=== PATIENT | male | born 1945 | race Caucasian/White ===

== ENCOUNTER 2017-05-23 11:00 | Emergency (ER) | payer OTHER ==
[~2017-05-23] VITALS: Ht 152.4 cm; Wt 54.0 kg
[~2017-05-23 11:00] MED LIST: CALC200T PO; LEVO88TA3 PO; MAGN400T24 PO; OMEP40CA PO; PLQ200 PO; PRED-301 PO; PREG1CAP36 PO; TAMS0.4C38 PO; TRAM-10 PO
[2017-05-23 11:07] VITALS: TEMP 36.3; Ht 152.4 cm; Wt 54.0 kg
[2017-05-23] MEDS ORDERED: PRLSR20 PO (11:29)
[2017-05-23] MEDS ORDERED: CALC650T4 PO (11:29)
[2017-05-23] MEDS ORDERED: MAGN1TAB19 PO (11:29)
[2017-05-23] MEDS ORDERED: PREG75CA PO (11:29)
--- NOTE | 2017-05-23 12:07 | EMERGENCY ROOM VISIT NOTE ---
History Report prepared by Trish: Dany Vera Under the Supervision of: Dr. Sonido Enrique M.D. First contact with patient: 11:57 Chief Complaint: FALL Stated Complaint: FALL,RIB AND SHOULDER PAIN History of Present Illness The patient is a 71 year old male who presents to the Emergency Room with complaints of a fall that occurred last night. Per the patient and his caretakers, at that time he was working on his stereo in his wheelchair. He was leaning forward in his chair and accidentally fell out of it, hitting the arm rest in the process. He is experiencing left shoulder pain and right rib pain. He denies any loss of consciousness, head trauma, weakness, or numbness. He describes his pains as aches and his severity as a 6/10 in severity. Source of History: patient Onset: last night Position: other (global) Symptom Intensity: mild Quality: other (Fall) Timing: resolved Associated Symptoms: No LOC, No weakness, No numbness Note: He is experiencing left shoulder and right rib pain. He denies any head trauma. Review of Systems See HPI for pertinent positives & negatives. A total of 10 systems reviewed and were otherwise negative. 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 (12) Osteoarthritis (13) Pelvis stress fracture (14) Tinea corporis Surgical Problems: (1) History of cholecystectomy Family History Diabetes mellitus FH: heart disease Hypertension Social History Smoking Status: Never Smoker Alcohol Use: occasionally Drug Use: none Marital Status: Housing Status: lives with significant other Occupation Status: retired Current/Historical Medications Scheduled Calcium Lactate (Calcium Lactate), 1,296 MG PO DAILY Docusate Sodium (Colace), 1 CAP PO BID Hydroxychloroquine Sulfate (Hydroxychloroquine Sulfat), 200 MG PO QPM Levothyroxine Sodium (Levothyroxine Sodium), 88 MCG PO DAILY Magnesium Oxide (Mg Supplement (Magnesium Oxide), 400 MG PO DAILY Omeprazole (Prilosec), 40 MG PO BID Prednisone (Prednisone), 10 MG PO BID Pregabalin (Lyrica), 75 MG PO BID Sennosides (Senokot), 8.6 MG PO HS Tamsulosin Hcl (Flomax), 0.4 MG PO DAILY Tramadol (Ultram), 50 MG PO TID Scheduled PRN Oxycodone Ir (Roxicodone Ir), 1-2 TAB PO Q4H PRN for Severe Pain Allergies Coded Allergies: Metoclopramide (Verified Adverse Reaction, Intermediate, RAPID HR, 05/23/17 ) ADM. [id number] REGLAN DOSE DECREASED,THEN INCREASED BY DR FIELD. PT NOW TOLERATING 10 MG ACHS. IF QUESTIONS,CALL [facility]. Physical Exam Vital Signs Date Time Temp Pulse Resp B/P (MAP) Pulse Ox O2 Delivery O2 Flow Rate FiO2 05/23/17 14:28 99 20 124/75 92 05/23/17 13:28 97 05/23/17 13:09 92 22 156/79 89 Room Air 05/23/17 13:00 89 Room Air 05/23/17 13:00 89 Room Air 05/23/17 11:07 36.3 85 18 133/74 94 Room Air Physical Exam GENERAL: Patient is a healthy-appearing well-nourished male HEAD: Normocephalic atraumatic EYES: Ocular movements intact pupils equal and react to light OROPHARYNX mucous membranes are moist no exudates present no erythema or edema present NECK: Supple no nuchal rigidity CHEST: Good equal expansion, tenderness to palpation of the left chest wall LUNGS: Clear and equal to auscultation CARDIAC: Normal S1 and S2 ABDOMEN: Soft nontender no guarding BACK: No CVA tenderness EXTREMITIES: No pain upon palpation normal muscle strength in all groups no clubbing cyanosis or edema NEURO: Patient is following commands and answering questions appropriately. Alert and oriented x3 Cranial Nerves 2-12 grossly intact Medical Decision & Procedures ER Provider Diagnostic Interpretation: Radiology results as stated below per my review and radiologist interpretation: THORACIC SPINE CT CT DOSE: HISTORY: Pt c/o back pain TECHNIQUE: Multiaxial CT images of the thoracic spine were performed and reformatted in the sagittal and coronal plane without the use of contrast. A dose lowering technique was utilized adhering to the principles of ALARA. COMPARISON: Chest CTA 10/28/2014. FINDINGS: There again noted compression deformities involving all of the thoracic and visualized lumbar spine vertebral bodies. This is most pronounced at the T7, T8, T9 and L1 levels which demonstrate severe compression fractures. Given the stability these are considered to be old. No new/acute compression fractures identified. No significant retropulsion identified. No significant central canal narrowing by CT technique. Paraspinal soft tissues are unremarkable. IMPRESSION: 1. No significant change in the multiple old compression deformities seen throughout the thoracic and lumbar spine. 2. No acute compression fractures identified. Electronically signed by: Dale Agarwal M.D. 05/23/2017 1:23 PM Dictated Date/Time: 05/23/2017 1:16 PM (CHEST) THORAX WITHOUT CLINICAL HISTORY: Left-sided chest pain status post trauma COMPARISON STUDY: 10/28/2014 CT DOSE: 189.07 mGy.cm TECHNIQUE: CT of the thorax was performed from the thoracic inlet to the lung bases. Images are reviewed in the axial, sagittal, and coronal planes. IV contrast was not administered for this examination. A dose lowering technique was utilized adhering to the principles of ALARA. FINDINGS: Thyroid: Imaged portions of the thyroid gland are normal in appearance. Thoracic aorta: The thoracic aorta is normal in course and caliber, noting standard 3 vessel arch anatomy. Heart: The heart is normal in size and configuration, without pericardial effusion. Lungs and pleural spaces: There are no significant pleural effusions. There is no pneumothorax. There is stable dependent airspace opacities, likely atelectatic. There is respiratory motion artifact. Mediastinum: There is no mediastinal lymphadenopathy. Jazmine: There is no evidence of pathologic hilar adenopathy given the limitations of a noncontrast study Axilla: There is no evidence of pathologic axillary lymphadenopathy Upper abdomen: Partially visualized upper abdominal viscera is within normal limits. Skeletal structures: There is an old proximal left humeral fracture. There are multiple old rib fractures in various stages of healing. There is an old scapular fracture. There are multiple severe vertebral body compression fractures. These remain similar to the prior study. There is an old sternal fracture. IMPRESSION: 1. No evidence of acute intrathoracic injury given the limitations of a noncontrast study 2. Multiple old bilateral rib fractures, sternal fracture, left scapular fracture, left humeral fracture, and multiple thoracic vertebral body compression fractures 3. No evidence of pneumothorax 4. Bibasilar opacities, similar to the prior study and likely atelectatic Electronically signed by: Sanjay Perez M.D. 05/23/2017 1:22 PM Dictated Date/Time: 05/23/2017 1:17 PM Laboratory Results 05/23/17 12:55 Red Blood Count 4.03, Mean Corpuscular Volume 89.6, Mean Corpuscular Hemoglobin 30.0, Mean Corpuscular Hemoglobin Concent 33.5, Mean Platelet Volume 8.0, Neutrophils (%) (Auto) 80.4, Lymphocytes (%) (Auto) 4.6, Monocytes (%) (Auto) 13.5, Eosinophils (%) (Auto) 0.5, Basophils (%) (Auto) 0.1, Neutrophils # (Auto ) 7.82, Lymphocytes # (Auto) 0.45, Monocytes # (Auto) 1.31, Eosinophils # (Auto ) 0.05, Basophils # (Auto) 0.01 05/23/17 12:55 Test 05/23/17 12:33 05/23/17 12:55 Bedside Glucose 91 mg/dl (70-99) White Blood Count 9.73 K/uL (4.8-10.8) Red Blood Count 4.03 M/uL (4.7-6.1) Hemoglobin 12.1 g/dL (14.0-18.0) Hematocrit 36.1 % (42-52) Mean Corpuscular Volume 89.6 fL (80-100) Mean Corpuscular Hemoglobin 30.0 pg (25-34) Mean Corpuscular Hemoglobin Concent 33.5 g/dl (32-36) Platelet Count 220 K/uL (130-400) Mean Platelet Volume 8.0 fL (7.4-10.4) Neutrophils (%) (Auto) 80.4 % Lymphocytes (%) (Auto) 4.6 % Monocytes (%) (Auto) 13.5 % Eosinophils (%) (Auto) 0.5 % Basophils (%) (Auto) 0.1 % Neutrophils # (Auto) 7.82 K/uL (1.4-6.5) Lymphocytes # (Auto) 0.45 K/uL (1.2-3.4) Monocytes # (Auto) 1.31 K/uL (0.11-0.59) Eosinophils # (Auto) 0.05 K/uL (0-0.5) Basophils # (Auto) 0.01 K/uL (0-0.2) RDW Standard Deviation 45.0 fL (36.4-46.3) RDW Coefficient of Variation 13.7 % (11.5-14.5) Immature Granulocyte % (Auto) 0.9 % Immature Granulocyte # (Auto) 0.09 K/uL (0.00-0.02) Anion Gap 8.0 mmol/L (3-11) Est Creatinine Clear Calc Drug Dose 56.1 ml/min Estimated GFR () 101.2 Estimated GFR (Non- 87.3 BUN/Creatinine Ratio 21.0 (10-20) Calcium Level 9.0 mg/dl (8.5-10.1) Total Bilirubin 0.5 mg/dl (0.2-1) Direct Bilirubin < 0.1 mg/dl (0-0.2) Aspartate Amino Transf (AST/SGOT) 19 U/L (15-37) Alanine Aminotransferase (ALT/SGPT) 23 U/L (12-78) Alkaline Phosphatase 63 U/L (45-117) Total Protein 7.0 gm/dl (6.4-8.2) Albumin 3.6 gm/dl (3.4-5.0) Labs reviewed by ED physician. Medications Administered Medications (Trade) Dose Ordered Sig/Soumya Route Start Time Stop Time Status Last Admin Dose Admin Hydromorphone HCl (Dilaudid Inj) 0.5 mg NOW STAT IV 05/23/17 12:08 05/23/17 12:13 DC 05/23/17 12:53 0.5 MG Ondansetron HCl (Zofran Inj) 4 mg NOW STAT IV 05/23/17 12:08 05/23/17 12:13 DC 05/23/17 12:53 4 MG Lidocaine (Lidoderm Patch 5%) 1 patch NOW STAT TD 05/23/17 13:48 05/23/17 13:49 DC 05/23/17 14:03 1 PATCH ED Course 1157: Past medical records reviewed. The patient was evaluated in room B11. A complete history and physical examination was performed. 1208: Ordered Zofran Inj 4 mg IV, Dilaudid Inj 0.5 mg IV 1348: Ordered Lidocaine 1 patch TD 1405: Upon reexamination the patient is resting. I discussed results and treatment plan with the patient. He verbalizes agreement and understanding. The patient is ready for discharge. Medical Decision Differential diagnosis: Etiologies such as fracture, dislocation, intra-abdominal, pneumothorax, intrathoracic , intracranial, neurologic, as well as other traumatic pathologies were entertained. This is a 71-year-old male who presents emergency department complaining of chest pain after a fall into a bathtub. The patient has had multiple falls in the past has had multiple fractures. He was sent for CT of the chest which does not show any acute fractures pneumothorax or hemothorax. The patient's pain was controlled with Dilaudid here in the emergency department. Based on the complaint and the findings I feel the patient can be safely discharged home. Both patient and caregivers were in agreement with the treatment plan. The patient was given an incentive spirometer as well as pain meds for home. Medication Reconcilliation Current Medication List: was personally reviewed by me Blood Pressure Screening Patient's blood pressure: Elevated blood pressure Blood pressure disposition: Elevated BP felt to be situational Impression Primary Impression: Fall Additional Impression: Rib pain on left side Scribe Attestation The scribe's documentation has been prepared under my direction and personally reviewed by me in its entirety. I confirm that the note above accurately reflects all work, treatment, procedures, and medical decision making performed by me. Departure Information Dispostion Home / Self-Care Prescriptions Docusate Sodium (COLACE) 100 Mg Cap 1 CAP PO BID for 30 Days, #60 CAP Prov: Sonido Enrique MD 05/23/17 Sennosides (SENOKOT) 8.6 Mg Tab 8.6 MG PO HS, #30 TAB Prov: Sonido Enrique MD 05/23/17 Oxycodone Ir (Roxicodone Ir) 5 Mg Tab 1-2 TAB PO Q4H Y for Severe Pain, #14 TAB Prov: Sonido Enrique MD 05/23/17 Referrals Alfreda Angelo M.D. (PCP) Forms HOME CARE DOCUMENTATION FORM, IMPORTANT VISIT INFORMATION, School Instructions, Work Instructions Patient Instructions ED Contusion Vs Minor Fx Rib, ED Fall Dizziness Weakn Balance, My [facility] Additional Instructions Use incentive spirometer every 15 minutes Problem Qualifiers Primary Impression: Fall Encounter type: initial encounter Qualified Codes: W19.XXXA - Unspecified fall, initial encounter
[2017-05-23] MEDS ORDERED: HYDROmorphone INJ 0.5 MG/0.5 ML SYR IV STA (12:08)
[2017-05-23] MEDS ORDERED: ONDANSETRON INJ 2 MG/ML 2 ML VIAL IV STA (12:08)
[2017-05-23 13:00] VITALS: O2SAT 89
[2017-05-23 13:08] LABS: BASO % 0.1 %; BASO ABS # 0.01 K/uL (0-0.2); EOS % 0.5 %; EOS ABS # 0.05 K/uL (0-0.5); HEMATOCRIT 36.1 % (42-52); HEMOGLOBIN 12.1 g/dL (14.0-18.0); IG# 0.09 K/uL (0.00-0.02); LYMPH % 4.6 %; LYMPH ABS # 0.45 K/uL (1.2-3.4); MEAN CELL VOLUME 89.6 fL (80-100); MEAN CORPUSCULAR HGB CONC 33.5 g/dl (32-36); MONO % 13.5 %; MONO ABS # 1.31 K/uL (0.11-0.59); NEUT % 80.4 %; NEUT ABS # 7.82 K/uL (1.4-6.5); PLATELET COUNT 220 K/uL (130-400); RED CELL DISTRIBUTION WIDTH CV 13.7 % (11.5-14.5); WHITE BLOOD COUNT 9.73 K/uL (4.8-10.8)
--- NOTE | 2017-05-23 13:23 | DIAGNOSTIC IMAGING REPORT ---
(CHEST) THORAX WITHOUT CLINICAL HISTORY: Left-sided chest pain status post trauma COMPARISON STUDY: 10/28/2014 CT DOSE: 189.07 mGy.cm TECHNIQUE: CT of the thorax was performed from the thoracic inlet to the lung bases. Images are reviewed in the axial, sagittal, and coronal planes. IV contrast was not administered for this examination. A dose lowering technique was utilized adhering to the principles of ALARA. FINDINGS: Thyroid: Imaged portions of the thyroid gland are normal in appearance. Thoracic aorta: The thoracic aorta is normal in course and caliber, noting standard 3 vessel arch anatomy. Heart: The heart is normal in size and configuration, without pericardial effusion. Lungs and pleural spaces: There are no significant pleural effusions. There is no pneumothorax. There is stable dependent airspace opacities, likely atelectatic. There is respiratory motion artifact. Mediastinum: There is no mediastinal lymphadenopathy. Jazmine: There is no evidence of pathologic hilar adenopathy given the limitations of a noncontrast study Axilla: There is no evidence of pathologic axillary lymphadenopathy Upper abdomen: Partially visualized upper abdominal viscera is within normal limits. Skeletal structures: There is an old proximal left humeral fracture. There are multiple old rib fractures in various stages of healing. There is an old scapular fracture. There are multiple severe vertebral body compression fractures. These remain similar to the prior study. There is an old sternal fracture. IMPRESSION: 1. No evidence of acute intrathoracic injury given the limitations of a noncontrast study 2. Multiple old bilateral rib fractures, sternal fracture, left scapular fracture, left humeral fracture, and multiple thoracic vertebral body compression fractures 3. No evidence of pneumothorax 4. Bibasilar opacities, similar to the prior study and likely atelectatic Electronically signed by: Sanjay Perez M.D. 05/23/2017 1:22 PM Dictated Date/Time: 05/23/2017 1:17 PM
--- NOTE | 2017-05-23 13:24 | DIAGNOSTIC IMAGING REPORT ---
THORACIC SPINE CT CT DOSE: HISTORY: Pt c/o back pain TECHNIQUE: Multiaxial CT images of the thoracic spine were performed and reformatted in the sagittal and coronal plane without the use of contrast. A dose lowering technique was utilized adhering to the principles of ALARA. COMPARISON: Chest CTA 10/28/2014. FINDINGS: There again noted compression deformities involving all of the thoracic and visualized lumbar spine vertebral bodies. This is most pronounced at the T7, T8, T9 and L1 levels which demonstrate severe compression fractures. Given the stability these are considered to be old. No new/acute compression fractures identified. No significant retropulsion identified. No significant central canal narrowing by CT technique. Paraspinal soft tissues are unremarkable. IMPRESSION: 1. No significant change in the multiple old compression deformities seen throughout the thoracic and lumbar spine. 2. No acute compression fractures identified. Electronically signed by: Dale Agarwal M.D. 05/23/2017 1:23 PM Dictated Date/Time: 05/23/2017 1:16 PM
[2017-05-23 13:27] LABS: ALBUMIN 3.6 gm/dl (3.4-5.0); BLOOD UREA NITROGEN 17 mg/dl (7-18); CARBON DIOXIDE 25 mmol/L (21-32); CREATININE 0.83 mg/dl (0.60-1.40); GLUCOSE 98 mg/dl (70-99); POTASSIUM 3.5 mmol/L (3.5-5.1); SODIUM 139 mmol/L (136-145)
[2017-05-23 13:30] LABS: ALKALINE PHOSPHATASE 63 U/L (45-117); ALT/SGPT 23 U/L (12-78); AST/SGOT 19 U/L (15-37)
[2017-05-23] MEDS ORDERED: LIDODERM (LIDOCAINE) PATCH 5% TD STA (13:48)
[2017-05-23] MEDS ORDERED: SENN1TAB77 PO (13:54)
[2017-05-23] MEDS ORDERED: OXYC1TAB3 PO (13:54)
[2017-05-23] MEDS ORDERED: DOCU-94 PO (13:54)
[2017-05-23 14:28] VITALS: BP 124/75; PULSE 99; O2SAT 92
== END 2017-05-23 14:30 | disposition home or self-care (01) ==
LOC: C.EDB 11:03
DX: R07.81 Pleurodynia (principal); W05.0XXA Fall from non-moving wheelchair, initial encounter; W18.2XXA Fall in (into) shower or empty bathtub, initial encounter; M19.90 Unspecified osteoarthritis, unspecified site; E03.9 Hypothyroidism, unspecified; K21.9 Gastro-esophageal reflux disease without esophagitis; R03.0 Elevated blood-pressure reading, without diagnosis of hypertension; Z87.81 Personal history of (healed) traumatic fracture; Z96.649 Presence of unspecified artificial hip joint; Z79.52 Long term (current) use of systemic steroids; Z83.3 Family history of diabetes mellitus; Z82.49 Family history of ischemic heart disease and other diseases of the circulatory system

== ENCOUNTER 2017-06-04 15:51 | Emergency (ER) | payer OTHER ==
[~2017-06-04] VITALS: Ht 152.4 cm; Wt 58.8 kg
[~2017-06-04 15:51] MED LIST changes: -CALC200T PO; +CALC650T4 PO; +DOCU-94 PO; +MAGN1TAB19 PO; -MAGN400T24 PO; -OMEP40CA PO; +OXYC1TAB3 PO; -PREG1CAP36 PO; +PREG75CA PO; +PRLSR20 PO
[2017-06-04 15:59] VITALS: TEMP 36.7; Ht 152.4 cm; Wt 58.8 kg
--- NOTE | 2017-06-04 16:32 | DIAGNOSTIC IMAGING REPORT ---
CHEST 2 VIEWS ROUTINE HISTORY: 71 years-old Male r upper chest shoulder pain acute right upper chest and shoulder pain status post fall COMPARISON: Chest CT 05/23/2017 TECHNIQUE: PA and lateral views of the chest FINDINGS: Cardiac silhouette is moderately enlarged. Mild emphysematous changes with hyperinflation. Linear subsegmental opacity of the left lung base suggest atelectasis or scarring. No pneumothorax, pleural effusion or focal airspace consolidation. Multiple remote appearing bilateral rib fractures. Remote left clavicle fracture. No definite acute rib fracture identified. Bones appear osteoporotic. Remote fracture of the left scapula and left humerus. Cholecystectomy clips noted. Multiple likely remote appearing compression deformities of the spine. Atherosclerosis of the aorta. IMPRESSION: 1. Linear subsegmental atelectasis or scarring of the left lung base without acute process of the chest identified. 2. Cardiomegaly. 3. Multiple remote bilateral rib fractures with remote left scapular, clavicle and left humeral fractures. The above report was generated using voice recognition software. It may contain grammatical, syntax or spelling errors. Electronically signed by: Abdoul Clemens M.D. 06/04/2017 4:31 PM Dictated Date/Time: 06/04/2017 4:29 PM
--- NOTE | 2017-06-04 16:36 | DIAGNOSTIC IMAGING REPORT ---
R SHOULDER MIN 2 VIEWS ROUTINE CLINICAL HISTORY: r shoulder pain pain COMPARISON: None. DISCUSSION: Generalized degenerative change right shoulder. Generalized osteopenia. No well-defined acute bony abnormality. There are multiple old upper right rib fractures similar to prior study of 11/22/2014. There is no evidence for soft tissue swelling. IMPRESSION: Degenerative change. Osteopenia. Multiple old right rib fractures. The above report was generated using voice recognition software. It may contain grammatical, syntax or spelling errors. Electronically signed by: Jaron Rosa M.D. 06/04/2017 4:35 PM Dictated Date/Time: 06/04/2017 4:33 PM
[2017-06-04 18:30] VITALS: BP 155/78; PULSE 93; O2SAT 94
--- NOTE | 2017-06-04 22:31 | EMERGENCY ROOM VISIT NOTE ---
History Report prepared by Trish: Pablo Hallman Under the Supervision of: Travis TangO. First contact with patient: 15:57 Chief Complaint: SHOULDER PAIN Stated Complaint: FALL, R SHOULDER PAIN History of Present Illness The patient is a 71 year old male who presents to the Emergency Room with complaints of constant right shoulder pain beginning today after his fell and he tried to catch her. The patient states that his [place] in the [place], and that he tried to catch her. He notes that as he tried to catch his , he tripped a little and hurt his shoulder, but did not fall. He reports that he also bumped into something last night and is experiencing abdominal pain. He denies being on any blood thinners. He rates his pain a 6/10. Pt denies headache, change in vision, fevers, chest pain, shortness of breath, nausea, vomiting, diarrhea, pain with urination, and melena. Source of History: patient Onset: today Position: shoulder (right) Symptom Intensity: 6/10 Timing: constant Associated Symptoms: + abdominal pain, No fevers, No headache, No chest pain , No SOB, No nausea, No vomiting, No diarrhea, No urinary symptoms Review of Systems See HPI for pertinent positives & negatives. A total of 10 systems reviewed and were otherwise negative. 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 (12) Osteoarthritis (13) Pelvis stress fracture (14) Tinea corporis Surgical Problems: (1) History of cholecystectomy Family History Diabetes mellitus FH: heart disease Hypertension Social History Smoking Status: Never Smoker Alcohol Use: occasionally Drug Use: none Marital Status: Housing Status: lives with significant other Occupation Status: retired Current/Historical Medications Scheduled Calcium Lactate (Calcium Lactate), 1,296 MG PO DAILY Docusate Sodium (Colace), 1 CAP PO BID Hydroxychloroquine Sulfate (Hydroxychloroquine Sulfat), 200 MG PO QPM Levothyroxine Sodium (Levothyroxine Sodium), 88 MCG PO DAILY Magnesium Oxide (Mg Supplement (Magnesium Oxide), 400 MG PO DAILY Omeprazole (Prilosec), 40 MG PO BID Prednisone (Prednisone), 10 MG PO DAILY Pregabalin (Lyrica), 75 MG PO BID Tamsulosin Hcl (Flomax), 0.4 MG PO DAILY Tramadol (Ultram), 50 MG PO TID Scheduled PRN Oxycodone Ir (Roxicodone Ir), 1-2 TAB PO Q4H PRN for Severe Pain Allergies Coded Allergies: Metoclopramide (Verified Adverse Reaction, Intermediate, RAPID HR, 06/04/17 ) ADM. [id number] REGLAN DOSE DECREASED,THEN INCREASED BY DR FIELD. PT NOW TOLERATING 10 MG ACHS. IF QUESTIONS,CALL [facility]. Physical Exam Vital Signs Date Time Temp Pulse Resp B/P (MAP) Pulse Ox O2 Delivery O2 Flow Rate FiO2 06/04/17 18:30 93 18 155/78 94 06/04/17 15:59 36.7 105 20 144/85 92 Room Air Physical Exam GENERAL: alert, well appearing and sitting up in bed, well nourished, no distress, non-toxic, disheveled HEAD: normal cephalic, atraumatic EYE EXAM: normal conjunctiva, PERRL and EOM's grossly intact OROPHARYNX: no exudate, no erythema, lips, buccal mucosa, and tongue normal and mucous membranes are moist NECK: supple, no nuchal rigidity, no adenopathy, non-tender CHEST: Acute reproducible tenderness over right upper chest wall/right shoulder LUNGS: clear to auscultation. Normal chest wall mechanics HEART: no murmurs, S1 normal and S2 normal ABDOMEN: abdomen soft, non-tender, normo-active bowel sounds, no masses, no rebound or guarding. PELVIS: stable to compression anteriorly and posteriorly BACK: Back is symmetrical on inspection and there is no deformity, no midline tenderness, no CVA tenderness. UPPER EXTREMITIES: full active and passive range of motion of all joints without tenderness to palpation LOWER EXTREMITIES: full active and passive range of motion of all joints without tenderness to palpation NEURO EXAM: Normal sensorium, cranial nerves II-XII grossly intact, normal speech, no gross weakness of arms, no gross weakness of legs. Medical Decision & Procedures ER Provider Diagnostic Interpretation: Radiology results as stated below per my review and the radiologist's interpretation: R SHOULDER MIN 2 VIEWS ROUTINE CLINICAL HISTORY: r shoulder pain pain COMPARISON: None. DISCUSSION: Generalized degenerative change right shoulder. Generalized osteopenia. No well-defined acute bony abnormality. There are multiple old upper right rib fractures similar to prior study of 11/22/2014. There is no evidence for soft tissue swelling. IMPRESSION: Degenerative change. Osteopenia. Multiple old right rib fractures. The above report was generated using voice recognition software. It may contain grammatical, syntax or spelling errors. Electronically signed by: Jaron Rosa M.D. 06/04/2017 4:35 PM CHEST 2 VIEWS ROUTINE HISTORY: 71 years-old Male r upper chest shoulder pain acute right upper chest and shoulder pain status post fall COMPARISON: Chest CT 05/23/2017 TECHNIQUE: PA and lateral views of the chest FINDINGS: Cardiac silhouette is moderately enlarged. Mild emphysematous changes with hyperinflation. Linear subsegmental opacity of the left lung base suggest atelectasis or scarring. No pneumothorax, pleural effusion or focal airspace consolidation. Multiple remote appearing bilateral rib fractures. Remote left clavicle fracture. No definite acute rib fracture identified. Bones appear osteoporotic. Remote fracture of the left scapula and left humerus. Cholecystectomy clips noted. Multiple likely remote appearing compression deformities of the spine. Atherosclerosis of the aorta. IMPRESSION: 1. Linear subsegmental atelectasis or scarring of the left lung base without acute process of the chest identified. 2. Cardiomegaly. 3. Multiple remote bilateral rib fractures with remote left scapular, clavicle and left humeral fractures. The above report was generated using voice recognition software. It may contain grammatical, syntax or spelling errors. Electronically signed by: Abdoul Clemens M.D. 06/04/2017 4:31 PM ECG Indication: back/shoulder pain Rate (beats per minute): 90 Rhythm: sinus rhythm Findings: no ectopy, other (Poor baseline) ED Course ED COURSE: Vital signs were reviewed and showed that the patient was tachycardic. The patients medical record was reviewed The above diagnostic studies were performed and reviewed. ED treatments and interventions as stated above. 1555: The patient was evaluated in room A11. A complete history and physical examination was performed. 1802: Upon reevaluation, the patient is feeling fine .I discussed my findings with the him and he understands and agrees with the treatment plan. Based on the patients age, coexisting illnesses, exam and lab findings the decision to treat as an outpatient was made. The patient remained stable while under my care. The patient appeared well at the time of discharge. 1849: Upon reevaluation, the patient is feeling better. I discussed the findings and the treatment plan with the patient. He verbalizes agreement and understanding. He was discharged home. Medical Decision Differential diagnoses include major intracranial, cervical, spinal, thoracic, abdominal, pelvic and neurologic injury. Fracture, contusion, sprain, strain, laceration, abrasions included as well. Patient is a 71-year-old male who presents the ER for right shoulder pain and chest wall pain. This occurred when he tried to prevent his way from falling. He notes he has multiple old rib fractures. X-rays were obtained and show no acute fractures. They do confirm the old rib fractures. EKG was unremarkable. He denies any chest pain or shortness breath prior to this incident. Pain is clearly reproducible. Patient was updated bedside. He was discharged follow- up with PCP as an outpatient. He denied any other complaints including headache and neck pain. Discussed with Pt concerning signs and symptoms to watch out for. Pt was instructed to follow up with their PCP and discussed with the patient their option to return to the ED at anytime for persistent or worsening symptoms. The appropriate anticipatory guidance and out-patient management, including indications for return to the emergency department, were explained at length to the patient and understood. Blood Pressure Screening Patient's blood pressure: Elevated blood pressure Blood pressure disposition: Referred to PCP Impression Primary Impression: Right shoulder pain Additional Impression: Rib fracture Scribe Attestation The scribe's documentation has been prepared under my direction and personally reviewed by me in its entirety. I confirm that the note above accurately reflects all work, treatment, procedures, and medical decision making performed by me. Departure Information Dispostion Home / Self-Care Referrals Suleiman Rhoades D.O. (PCP) Forms HOME CARE DOCUMENTATION FORM, IMPORTANT VISIT INFORMATION Patient Instructions My [facility] Additional Instructions Please follow up with your primary care doctor with in the next 24 hours. Any worsening of your symptoms, please return to the ED immediately. This includes any fevers greater than 100.4, worsening pain, chest pain, shortness breath, persistent nausea, vomiting, unable to eat or drink, or any other concerning signs or symptoms from your standpoint. Please take Tylenol or Motrin as needed for pain. Problem Qualifiers Primary Impression: Right shoulder pain Chronicity: acute Qualified Codes: M25.511 - Pain in right shoulder Additional Impression: Rib fracture Encounter type: subsequent encounter Rib fracture type: multiple ribs Fracture type: closed Fracture healing: with routine healing
== END 2017-06-04 18:30 | disposition home or self-care (01) ==
LOC: EDBD 15:51 → C.EDA 15:54
DX: M25.511 Pain in right shoulder (principal); Z87.81 Personal history of (healed) traumatic fracture; R00.0 Tachycardia, unspecified; E03.9 Hypothyroidism, unspecified; F32.9 Major depressive disorder, single episode, unspecified; K21.9 Gastro-esophageal reflux disease without esophagitis; K31.84 Gastroparesis; F71 Moderate intellectual disabilities; G24.4 Idiopathic orofacial dystonia; M19.90 Unspecified osteoarthritis, unspecified site; Z96.649 Presence of unspecified artificial hip joint; Z83.3 Family history of diabetes mellitus; Z82.49 Family history of ischemic heart disease and other diseases of the circulatory system

== ENCOUNTER 2017-09-06 15:39 | Emergency (ER) | payer OTHER ==
[~2017-09-06] VITALS: Ht 154.9 cm; Wt 67.7 kg
[~2017-09-06 15:39] MED LIST changes: -DOCU-94 PO
[2017-09-06 15:46] VITALS: TEMP 36.9; Ht 154.9 cm; Wt 67.7 kg
--- NOTE | 2017-09-06 16:05 | EMERGENCY ROOM VISIT NOTE ---
History Report prepared by Trish: Kyree Morrison Under the Supervision of: Dr. Juliette Herrera D.O. First contact with patient: 15:49 Chief Complaint: BACK PAIN Stated Complaint: BACK PAIN History of Present Illness The patient is a 71 year old male who presents to the Emergency Room via EMS with complaints of persistent lower back pain after a fall that occurred last night. He states that he was bending forward in his wheelchair, and ended up falling over onto his back side on the floor. The patient notes that he did not hit his head on the fall. He says that he was able to get up and get back into the chair after the fall. Per the nursing staff, case management is involved to deal with the patient and his , who live in a house by themselves. They do have aides who come to the house. The patient states that he has a history of back pain, but the pain is much worse since the fall. He adds that he has some right knee pain, but has not history of knee problems. He denies any urinary symptoms, bowel movement problems, or new numbness or tingling since the fall. Source of History: patient, nursing staff Onset: Last night Position: back (lower) Symptom Intensity: did not hit head on fall Quality: other (pain - after a fall) Timing: other (persistent) Associated Symptoms: No urinary symptoms (or bowel movement problems), No numbness (no new) Note: Associated symptoms: Right knee pain. Review of Systems See HPI for pertinent positives & negatives. A total of 10 systems reviewed and were otherwise negative. 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 (12) Osteoarthritis (13) Pelvis stress fracture (14) Tinea corporis Surgical Problems: (1) History of cholecystectomy Family History Diabetes mellitus FH: heart disease Hypertension Social History Smoking Status: Never Smoker Alcohol Use: occasionally Drug Use: none Marital Status: Housing Status: lives with significant other Occupation Status: retired Current/Historical Medications Scheduled Calcium Lactate (Calcium Lactate), 1,296 MG PO DAILY Hydroxychloroquine Sulfate (Hydroxychloroquine Sulfat), 200 MG PO QPM Levothyroxine Sodium (Levothyroxine Sodium), 88 MCG PO DAILY Magnesium Oxide (Mg Supplement (Magnesium Oxide), 400 MG PO DAILY Omeprazole (Prilosec), 40 MG PO BID Pregabalin (Lyrica), 75 MG PO BID Tamsulosin Hcl (Flomax), 0.4 MG PO DAILY Tramadol (Ultram), 50 MG PO TID Scheduled PRN Albuterol Hfa (Ventolin Hfa), 2 PUFFS INH Q6H PRN for Wheezing Allergies Coded Allergies: Metoclopramide (Verified Adverse Reaction, Intermediate, RAPID HR, 09/06/17 ) ADM. [id number]- REGLAN DOSE DECREASED,THEN INCREASED BY DR FIELD. PT NOW TOLERATING 10 MG ACHS. IF QUESTIONS,CALL [facility]. Physical Exam Vital Signs Date Time Temp Pulse Resp B/P (MAP) Pulse Ox O2 Delivery O2 Flow Rate FiO2 09/06/17 21:58 71 20 128/68 99 09/06/17 20:30 69 18 124/63 92 Room Air 09/06/17 18:13 64 16 109/57 90 09/06/17 15:46 36.9 76 18 137/84 91 Room Air Physical Exam GENERAL: alert, well appearing, well nourished, no distress, non-toxic EYE EXAM: normal conjunctiva, PERRL and EOM's grossly intact OROPHARYNX: no exudate, no erythema, lips, buccal mucosa, and tongue normal and mucous membranes are moist NECK: supple, no nuchal rigidity, no adenopathy, non-tender LUNGS: Clear to auscultation. Normal chest wall mechanics HEART: no murmurs, S1 normal and S2 normal ABDOMEN: abdomen soft, non-tender, normo-active bowel sounds, no masses, no rebound or guarding. BACK: Back is symmetrical on inspection and there is no deformity. Pain on palpation lower lumbar spine. No stepoff, no CVA tenderness, no other neck or back pain. SKIN: no rashes and no bruising UPPER EXTREMITIES: upper extremities are grossly normal. LOWER EXTREMITIES: What appears to be chronic swelling and joint effusions to the bilateral knees. Slightly decreased range of motion of the right knee secondary to pain but otherwise normal pulses, no edema. NEURO EXAM: Normal sensorium, cranial nerves II-XII grossly intact, normal speech, no gross weakness of arms, no gross weakness of legs. Medical Decision & Procedures ER Provider Diagnostic Interpretation: Radiology results have been interpreted by the radiologist and reviewed by me. PELVIS 1 OR 2 VIEW ROUTINE CLINICAL HISTORY: trauma pain COMPARISON: None. DISCUSSION: Findings consistent with a prior left hip pain procedure. Old fracture left pubic ring. No well-defined acute bony abnormality. Findings consistent with an old fracture of the distal left femur. There is an intramedullary jesus in position. There is no evidence for soft tissue swelling. IMPRESSION: Findings consistent with old trauma and postoperative change. No acute bony abnormality. The above report was generated using voice recognition software. It may contain grammatical, syntax or spelling error. Electronically signed by: Jaron Rosa M.D. 09/06/2017 5:22 PM Dictated Date/Time: 09/06/2017 5:[address] WITHOUT CONTRAST CLINICAL HISTORY: Low back pain following fall one week ago. COMPARISON STUDY: Lumbar spine CT October 15, 2014 and lumbar spine radiographs December 26, 2014. TECHNIQUE: Axial images of the lumbar spine were obtained without IV contrast. Sagittal and coronal reconstructions were viewed. FINDINGS: There are old compression fractures of T12-L5. These fractures were shown on exam of December 26, 2014. Loss of height of the L4 vertebral body has increased since CT of October 15, 2014. There is minimal retropulsion at several levels. No acute lumbar spine fracture is identified. Sacroiliac joints are intact. Sclerosis of S1 is unchanged and may reflect an old, healed fracture. Paravertebral soft tissues are unremarkable. Old bilateral rib fractures are noted. Central canal and neural foramen are suboptimally assessed by CT. Sigmoid diverticulosis is noted without evidence for acute diverticulitis within visualized portions. IMPRESSION: 1. Old compression fractures of T12-L5. No acute lumbar spine fracture. Interval loss of height of the L4 vertebral body height since CT of October 15, 2014. 2. Moderate multilevel degenerative disc disease and facet arthrosis. Suboptimal evaluation of central canal and neural foramen given CT technique. Electronically signed by: Dominguez Wells M.D. 09/06/2017 5:38 PM Dictated Date/Time: 09/06/2017 5:29 PM R KNEE 1 OR 2 VIEWS ROUTINE CLINICAL HISTORY: trauma, pain COMPARISON: 04/22/2015 DISCUSSION: Moderate degenerative change. Small chronic joint effusion. Scattered benign calcifications of the pretibial region. Mild chondrocalcinosis. There is no evidence for soft tissue swelling. IMPRESSION: Moderate degenerative change. No acute process. The above report was generated using voice recognition software. It may contain grammatical, syntax or spelling errors. Electronically signed by: Jaron Rosa M.D. 09/06/2017 5:21 PM Dictated Date/Time: 09/06/2017 5:20 PM Laboratory Results Test 09/06/17 20:17 Urine Color DK YELLOW Urine Appearance CLEAR (CLEAR) Urine pH 6.0 (4.5-7.5) Urine Specific [place] 1.029 (1.000-1.030) Urine Protein NEG (NEG) Urine Glucose (UA) NEG (NEG) Urine Ketones NEG (NEG) Urine Occult Blood NEG (NEG) Urine Nitrite NEG (NEG) Urine Bilirubin NEG (NEG) Urine Urobilinogen NEG (NEG) Urine Leukocyte Esterase NEG (NEG) Laboratory results per my review. Medications Administered Medications (Trade) Dose Ordered Sig/Soumya Route Start Time Stop Time Status Last Admin Dose Admin Acetaminophen (Tylenol Tab) 650 mg NOW STAT PO 09/06/17 16:28 09/06/17 16:29 DC 09/06/17 16:43 650 MG ED Course 1552: The patient was evaluated in room C11B. A complete history and physical exam was performed. 1628: Tylenol Tab 650 mg PO. 8: I reevaluated and updated the patient. The caregiver is in there now. 2049: Upon reevaluation, the patient is feeling better. I discussed the findings and the treatment plan with the patient and the caregivers. They verbalize agreement and understanding. The patient and the caregivers feel that they are comfortable going home. The patient was discharged home. Medical Decision Differential diagnoses includes but is not limited to lumbar radiculopathy, muscle strain, facture, cauda equina, mass, and disc herniation. Patient well-appearing her despite complaints. Patient a poor historian and has chronic daily caregivers assist he and his at home. I have a low suspicion for additional occult traumatic injury. Patient with multiple chronic comorbidities. I do not suspect occult pathology. No symptoms or exam to suggest cauda equina, acute discitis, acute nerve impingement, epidural abscess or hematoma. Patient in his usual state of health and acting appropriately according to caregivers. Caregivers were comfortable assisting the patient home. Discussed with patient and caregiver symptoms to watch and return for, close follow-up with family doctor to recheck as a precaution, they verbalized understanding and were agreeable with plan. Medication Reconcilliation Current Medication List: was personally reviewed by me Blood Pressure Screening Patient's blood pressure: Elevated blood pressure Blood pressure disposition: Elevated BP felt to be situational Impression Primary Impression: Back pain Additional Impressions: Fall Knee pain Scribe Attestation The scribe's documentation has been prepared under my direction and personally reviewed by me in its entirety. I confirm that the note above accurately reflects all work, treatment, procedures, and medical decision making performed by me. Departure Information Dispostion Home / Self-Care Referrals Suleiman Rhoades D.O. (PCP) Patient Instructions My [facility] Additional Instructions Please continue your regular medications as prescribed. You may use Tylenol as needed for your knee pain and back pain. You may also use the pain patch which is [id number] and can be purchased at your drugstore or in the pharmacy section of [employer] If you have any worsening pain in your back, hips , knees, develop numbness or tingling, increased swelling in her joints, have difficulty with bowel or bladder function, develop fevers, you have any other new concerns, please return the emergency room. Problem Qualifiers Primary Impression: Back pain Back pain location: low back pain Chronicity: acute Back pain laterality: bilateral Sciatica presence: without sciatica Qualified Codes: M54.5 - Low back pain Additional Impressions: Fall Encounter type: initial encounter Qualified Codes: W19.XXXA - Unspecified fall, initial encounter Knee pain Chronicity: chronic Laterality: bilateral Qualified Codes: M25.561 - Pain in right knee; M25.562 - Pain in left knee; G89.29 - Other chronic pain
[2017-09-06] MEDS ORDERED: ACETAMINOPHEN 325 MG TAB PO STA (16:28)
[2017-09-06] MEDS ORDERED: VNTHFA/IN INH (16:54)
--- NOTE | 2017-09-06 17:23 | DIAGNOSTIC IMAGING REPORT ---
R KNEE 1 OR 2 VIEWS ROUTINE CLINICAL HISTORY: trauma, pain COMPARISON: 04/22/2015 DISCUSSION: Moderate degenerative change. Small chronic joint effusion. Scattered benign calcifications of the pretibial region. Mild chondrocalcinosis. There is no evidence for soft tissue swelling. IMPRESSION: Moderate degenerative change. No acute process. The above report was generated using voice recognition software. It may contain grammatical, syntax or spelling errors. Electronically signed by: Jaron Rosa M.D. 09/06/2017 5:21 PM Dictated Date/Time: 09/06/2017 5:20 PM
--- NOTE | 2017-09-06 17:24 | DIAGNOSTIC IMAGING REPORT ---
PELVIS 1 OR 2 VIEW ROUTINE CLINICAL HISTORY: trauma pain COMPARISON: None. DISCUSSION: Findings consistent with a prior left hip pain procedure. Old fracture left pubic ring. No well-defined acute bony abnormality. Findings consistent with an old fracture of the distal left femur. There is an intramedullary jesus in position. There is no evidence for soft tissue swelling. IMPRESSION: Findings consistent with old trauma and postoperative change. No acute bony abnormality. The above report was generated using voice recognition software. It may contain grammatical, syntax or spelling errors. Electronically signed by: Jaron Rosa M.D. 09/06/2017 5:22 PM Dictated Date/Time: 09/06/2017 5:21 PM
--- NOTE | 2017-09-06 17:39 | DIAGNOSTIC IMAGING REPORT ---
LUMBAR SPINE CT WITHOUT CONTRAST CLINICAL HISTORY: Low back pain following fall one week ago. COMPARISON STUDY: Lumbar spine CT October 15, 2014 and lumbar spine radiographs December 26, 2014. TECHNIQUE: Axial images of the lumbar spine were obtained without IV contrast. Sagittal and coronal reconstructions were viewed. FINDINGS: There are old compression fractures of T12-L5. These fractures were shown on exam of December 26, 2014. Loss of height of the L4 vertebral body has increased since CT of October 15, 2014. There is minimal retropulsion at several levels. No acute lumbar spine fracture is identified. Sacroiliac joints are intact. Sclerosis of S1 is unchanged and may reflect an old, healed fracture. Paravertebral soft tissues are unremarkable. Old bilateral rib fractures are noted. Central canal and neural foramen are suboptimally assessed by CT. Sigmoid diverticulosis is noted without evidence for acute diverticulitis within visualized portions. IMPRESSION: 1. Old compression fractures of T12-L5. No acute lumbar spine fracture. Interval loss of height of the L4 vertebral body height since CT of October 15, 2014. 2. Moderate multilevel degenerative disc disease and facet arthrosis. Suboptimal evaluation of central canal and neural foramen given CT technique. Electronically signed by: Dominguez Wells M.D. 09/06/2017 5:38 PM Dictated Date/Time: 09/06/2017 5:29 PM
[2017-09-06 21:58] VITALS: BP 128/68; PULSE 71; O2SAT 99
== END 2017-09-06 21:59 | disposition home or self-care (01) ==
LOC: EDBD 15:39 → C.EDC 15:39
DX: M54.5 Low back pain (principal); M25.561 Pain in right knee; M25.562 Pain in left knee; W05.0XXA Fall from non-moving wheelchair, initial encounter; R03.0 Elevated blood-pressure reading, without diagnosis of hypertension; E03.9 Hypothyroidism, unspecified; M19.90 Unspecified osteoarthritis, unspecified site; K21.9 Gastro-esophageal reflux disease without esophagitis; Z96.649 Presence of unspecified artificial hip joint; Z79.899 Other long term (current) drug therapy

== ENCOUNTER 2017-09-29 11:16 | Inpatient (IN) | payer OTHER ==
[~2017-09-29] VITALS: Ht 152.4 cm; Wt 52.7 kg
[~2017-09-29 11:16] MED LIST changes: -OXYC1TAB3 PO; -PRED-301 PO; +VNTHFA/IN INH
[2017-09-29] MEDS ORDERED: SODIUM CHLORIDE 0.9% 1000ML 1,000 ML IV STA (11:57)
--- NOTE | 2017-09-29 12:06 | EMERGENCY ROOM VISIT NOTE ---
History Report prepared by Trish: Efrain Bridges Under the Supervision of: Dr. Eris Bedoya M.D. First contact with patient: 11:54 Chief Complaint: RECTAL BLEEDING Stated Complaint: BLEEDING FROM RECTUM,STOMACH ACHE,NOT EATING Nursing Triage Summary: patien to ed via triage, c/o bilateral lower abdominal pain which radiates into the back and rectal bleeding since this morning History of Present Illness The patient is a 71 year old male who presents to the Emergency Room with complaints of intermittent bleeding from his rectum beginning last evening. The patient states both him and his partner use the same toilet. He reports he noticed blood in the toilet, and he was not sure if it was his partner or him. The patient's healthcare market consultant noted he left the patient at 1600 yesterday, and the bleeding began after he left. He states the patient did not have a way to get to the ED unless he called an ambulance or waited for the caregiver to return today. The caregiver reports the patient occasionally coughs phlegm up and spits it into a paper towel. He notes the patient is not able to eat anything recently because of abdominal pain. The caregiver states the patient had all of his pills today with mild liquid, and that is all he has had for food or drink. He reports the patient has a history of a broken hip. The patient denies taking blood thinners or aspirin, fevers, chills, vomiting, nausea, diarrhea, and a history of smoking or alcohol use. Source of History: patient, caregiver Onset: last evening Quality: other (rectal bleeding) Timing: intermittent Associated Symptoms: + cough, + abdominal pain, No fevers, No chills, No nausea, No vomiting, No diarrhea Review of Systems See HPI for pertinent positives and negatives. A total of ten systems were reviewed and were otherwise negative. 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 (12) Osteoarthritis (13) Pelvis stress fracture (14) Rectal bleeding (15) Tinea corporis Surgical Problems: (1) History of cholecystectomy Family History Diabetes mellitus FH: heart disease Hypertension Social History Smoking Status: Never Smoker Alcohol Use: occasionally Drug Use: none Marital Status: Housing Status: lives with significant other Occupation Status: retired Current/Historical Medications Scheduled Calcium Lactate (Calcium Lactate), 1,296 MG PO DAILY Hydroxychloroquine Sulfate (Hydroxychloroquine Sulfat), 200 MG PO QPM Levothyroxine Sodium (Levothyroxine Sodium), 88 MCG PO DAILY Magnesium Oxide (Mg Supplement (Magnesium Oxide), 400 MG PO DAILY Omeprazole (Prilosec), 40 MG PO BID Pregabalin (Lyrica), 75 MG PO BID Tamsulosin Hcl (Flomax), 0.4 MG PO DAILY Tramadol (Ultram), 50 MG PO TID Scheduled PRN Albuterol Hfa (Ventolin Hfa), 2 PUFFS INH Q6H PRN for Wheezing Allergies Coded Allergies: Metoclopramide (Verified Adverse Reaction, Intermediate, RAPID HR, 09/29/17 ) ADM. [id number]- REGLAN DOSE DECREASED,THEN INCREASED BY DR FIELD. PT NOW TOLERATING 10 MG ACHS. IF QUESTIONS,CALL [facility]. Physical Exam Vital Signs Date Time Temp Pulse Resp B/P (MAP) Pulse Ox O2 Delivery O2 Flow Rate FiO2 09/29/17 17:06 100 20 146/91 96 09/29/17 16:07 100 09/29/17 15:30 89 21 127/73 98 Room Air 09/29/17 13:30 98 20 96 Room Air 09/29/17 12:06 105 09/29/17 11:54 96 Room Air 09/29/17 11:28 36.6 114 20 125/74 96 Room Air Physical Exam GENERAL: Awake, alert, fatigued and cachectic-appearing, in no distress HENT: Normocephalic, atraumatic. Oropharynx unremarkable except for dry and cracked mucous membranes. EYES: Normal conjunctiva. Sclera non-icteric. NECK: Supple. No nuchal rigidity. FROM. No JVD. RESPIRATORY: Scattered wheezes and rhonchi. CARDIAC: Sinus tachycardia rate, normal rhythm. Extremities warm and well perfused. Pulses equal. ABDOMEN: Soft, non-distended. No tenderness to palpation. No rebound or guarding. No masses. RECTAL: Red blood. Guaiac positive. Single small, non-thrombosed, non-bloody external hemorrhoid. MUSCULOSKELETAL: Chest examination reveals no tenderness. The back is symmetrical on inspection without obvious abnormality. There is no CVA tenderness to palpation. No joint edema. LOWER EXTREMITIES: Calves are equal size bilaterally and non-tender. No edema. No discoloration. NEURO: Normal sensorium. No sensory or motor deficits noted. SKIN: No rash or jaundice noted. Medical Decision & Procedures ER Provider Diagnostic Interpretation: Radiology results as stated below per my review and radiologist interpretation: CHEST ONE VIEW PORTABLE HISTORY: EVALUATE GI BLEED COMPARISON: Chest 06/04/2017. FINDINGS: Old post traumatic changes seen within the proximal left humerus, left clavicle, and bilateral ribs. This remains unchanged. Cholecystectomy. There are low lung volumes. Mild interstitial thickening most pronounced at the left lung base, unchanged. The heart remains mildly enlarged. No evidence for pulmonary edema. Stable left basilar pleural thickening. A few left basilar linear densities favor subsegmental atelectasis. This is also unchanged. No new focal lung consolidations. IMPRESSION: No significant change compared to the prior study. No acute process. Chronic findings as described above Electronically signed by: Dale Agarwal M.D. 09/29/2017 12:29 PM Dictated Date/Time: 09/29/2017 12:28 PM ABDOMEN AND PELVIS CT WITH IV CONTRAST CT DOSE: 287.30 mGy.cm HISTORY: hematochezia TECHNIQUE: Multiaxial CT images of the abdomen and pelvis were performed following the use of intravenous contrast. A dose lowering technique was utilized adhering to the principles of ALARA. COMPARISON STUDY: Abdomen and pelvis CT 12/26/2014. FINDINGS: Multiple old, healed fractures seen within the ribs, left scapula, spine, and pelvis. Internal fixation of an old left hip fracture is again noted. These are similar to the prior studies and are therefore likely old. Interstitial thickening at the lung bases. This is likely chronic. Calcified granuloma within the right lung base. Patchy densities seen within the base of the left lower lobe. This may represent atelectasis or a pneumonia. No pneumoperitoneum. No pneumatosis. Trace pelvic free fluid. The bladder is unremarkable. Cholecystectomy. No hepatic or splenic masses. The adrenal glands, pancreas, and right kidney are within normal limits. A few subcentimeter hypodense lesions within the left kidney. These are too small to characterize but statistically represent cysts. No hydronephrosis. No retroperitoneal lymphadenopathy. Colonic diverticulosis. A long segment of large bowel wall thickening involving the majority of the transverse colon. This is consistent with a nonspecific colitis. Tiny fat-containing umbilical hernia. IMPRESSION: 1. Nonspecific transverse colitis. This favors an infectious or inflammatory process. 2. Multiple old, healed fractures are again noted. 3. Colonic diverticulosis. 4. Patchy densities at the base of the left lower lobe. This may represent atelectasis or pneumonia. Electronically signed by: Dale Agarwal M.D. 09/29/2017 2:18 PM Dictated Date/Time: 09/29/2017 2:06 PM Laboratory Results 09/29/17 12:54 Red Blood Count 3.97, Mean Corpuscular Volume 84.4, Mean Corpuscular Hemoglobin 27.2, Mean Corpuscular Hemoglobin Concent 32.2, Mean Platelet Volume 7.9, Neutrophils (%) (Auto) 81.8, Lymphocytes (%) (Auto) 4.8, Monocytes (%) (Auto) 12.5, Eosinophils (%) (Auto) 0.5, Basophils (%) (Auto) 0.1, Neutrophils # (Auto ) 9.02, Lymphocytes # (Auto) 0.53, Monocytes # (Auto) 1.38, Eosinophils # (Auto ) 0.05, Basophils # (Auto) 0.01 09/29/17 17:10 09/29/17 12:54 Test 09/29/17 12:54 White Blood Count 11.02 K/uL (4.8-10.8) Red Blood Count 3.97 M/uL (4.7-6.1) Hemoglobin 10.8 g/dL (14.0-18.0) Hematocrit 33.5 % (42-52) Mean Corpuscular Volume 84.4 fL (80-100) Mean Corpuscular Hemoglobin 27.2 pg (25-34) Mean Corpuscular Hemoglobin Concent 32.2 g/dl (32-36) Platelet Count 238 K/uL (130-400) Mean Platelet Volume 7.9 fL (7.4-10.4) Neutrophils (%) (Auto) 81.8 % Lymphocytes (%) (Auto) 4.8 % Monocytes (%) (Auto) 12.5 % Eosinophils (%) (Auto) 0.5 % Basophils (%) (Auto) 0.1 % Neutrophils # (Auto) 9.02 K/uL (1.4-6.5) Lymphocytes # (Auto) 0.53 K/uL (1.2-3.4) Monocytes # (Auto) 1.38 K/uL (0.11-0.59) Eosinophils # (Auto) 0.05 K/uL (0-0.5) Basophils # (Auto) 0.01 K/uL (0-0.2) RDW Standard Deviation 47.5 fL (36.4-46.3) RDW Coefficient of Variation 15.3 % (11.5-14.5) Immature Granulocyte % (Auto) 0.3 % Immature Granulocyte # (Auto) 0.03 K/uL (0.00-0.02) Prothrombin Time 11.4 SECONDS (9.0-12.0) Prothromb Time International Ratio 1.1 (0.9-1.1) Activated Partial Thromboplast Time 29.0 SECONDS (21.0-31.0) Partial Thromboplastin Ratio 1.1 Anion Gap 5.0 mmol/L (3-11) Est Creatinine Clear Calc Drug Dose 48.0 ml/min Estimated GFR () 89.4 Estimated GFR (Non- 77.1 BUN/Creatinine Ratio 16.4 (10-20) Lactic Acid Level 1.3 mmol/L (0.4-2.0) Calcium Level 8.6 mg/dl (8.5-10.1) Total Bilirubin 0.5 mg/dl (0.2-1) Direct Bilirubin 0.1 mg/dl (0-0.2) Aspartate Amino Transf (AST/SGOT) 15 U/L (15-37) Alanine Aminotransferase (ALT/SGPT) 13 U/L (12-78) Alkaline Phosphatase 100 U/L (45-117) Troponin I < 0.015 ng/ml (0-0.045) Pro-B-Type Natriuretic Peptide 175 pg/ml (0-900) Total Protein 7.0 gm/dl (6.4-8.2) Albumin 3.0 gm/dl (3.4-5.0) Lipase 72 U/L (73-393) Laboratory results reviewed by me Medications Administered Medications (Trade) Dose Ordered Sig/Soumya Route Start Time Stop Time Status Last Admin Dose Admin Sodium Chloride 1,000 ml @ 999 mls/hr Q1H1M STAT IV 09/29/17 11:57 09/29/17 12:57 DC 09/29/17 12:47 999 MLS/HR Methylprednisolone Sodium Succinate (Solu-Medrol IV) 125 mg NOW STAT IV 09/29/17 14:31 09/29/17 14:34 DC 09/29/17 15:25 125 MG Albuterol/ Ipratropium (Duoneb) 3 ml NOW STAT INH 09/29/17 14:31 09/29/17 14:34 DC 09/29/17 15:26 3 ML Levofloxacin (Levaquin / D5W) 750 mg NOW STAT IV 09/29/17 14:31 09/29/17 14:34 DC 09/29/17 15:25 750 MG Metronidazole (Flagyl / Nss) 500 mg NOW STAT IV 09/29/17 14:31 09/29/17 14:34 DC 09/29/17 15:25 500 MG Pantoprazole Sodium 40 mg/ Syringe 10 ml @ 5 mls/min NOW ONCE IV 09/29/17 15:15 09/29/17 15:16 DC 09/29/17 15:26 5 MLS/MIN ECG Per My Interpretation Indication: other (GI bleeding) Rate (beats per minute): 94 Rhythm: normal sinus Findings: no acute ischemic change, no ectopy, other (LVH) ED Course 1156: The patient was evaluated in room C09. A complete history and physical exam was performed. 1201: I discussed the risk and benefits of a blood transfusion if needed. The patient consent for a blood transfusion. 1434: Upon reexamination, the patient was requesting to go home. I told him he risks if he does. He said he does not want that. I discussed the test results and treatment plan with him. The patient will be evaluated for further management. 1511: I discussed the patient's case with Dr. Rouse, [place] [facility]. The patient will be evaluated for further management and care. 1544: I reevaluated the patient and performed a rectal exam. Refer to the PE for findings. Medical Decision I reviewed the patient's past medical history, medications, and the nursing notes as described above. Differential diagnosis: Etiologies such as diverticulosis, AVM, coagulopathy, colitis, inflammatory bowel disease, malignancy, Evi-Chilel tear, esophagitis, peptic ulcer disease , variceal bleed, gastritis, epistaxis, fissure, hemorrhoids, as well as others were entertained. The patient is a 71-year-old gentleman who presents emergency department with red blood per rectum that began last night per hpi. Rather the patient is fatigued appearing in no acute distress, afebrile with heart rate in the low 100s and vital signs otherwise stable. Lungs with diffuse rhonchi and wheezes. Rectal exam demonstrates red blood that is guaiac positive. EKG unremarkable. WBC 11. Hemoglobin is 10.8 down from 12.1 in May. Chemistry unremarkable including lactate within normal limits. Chest x-ray unchanged. However, CT abdomen and pelvis demonstrates diverticulosis as well colitis with additional basilar lung findings consistent with pneumonia. Given the patient's exam with significant rhonchi and wheezes will treat for pneumonia/bronchitis with steroids, DuoNeb, Levaquin which with additional Flagyl will also provide coverage for colitis. Hematochezia suspicious for diverticular bleed. Plan to continue to trend H/H for now. However, patient consented for transfusion if necessary. Case was discussed with Svitlana Vargas hospitalist, who will evaluate the patient for admission. Medication Reconcilliation Current Medication List: was personally reviewed by me Blood Pressure Screening Patient's blood pressure: Normal blood pressure Blood pressure disposition: Did not require urgent referral Consults Time Called: 1503 Consulting Physician[facility] Returned Call: 1511 I discussed the patient's case with Svitlana Pal. The patient will be evaluated for further management and care. Impression Primary Impression: Colitis Additional Impressions: Pneumonia Hematochezia Scribe Attestation The scribe's documentation has been prepared under my direction and personally reviewed by me in its entirety. I confirm that the note above accurately reflects all work, treatment, procedures, and medical decision making performed by me. Departure Information Dispostion Being Evaluated By Hospitalist Referrals Suleiman Rhoades D.O. (PCP) Patient Instructions My [facility] Problem Qualifiers
--- NOTE | 2017-09-29 12:30 | DIAGNOSTIC IMAGING REPORT ---
CHEST ONE VIEW PORTABLE HISTORY: EVALUATE GI BLEED COMPARISON: Chest 06/04/2017. FINDINGS: Old post traumatic changes seen within the proximal left humerus, left clavicle, and bilateral ribs. This remains unchanged. Cholecystectomy. There are low lung volumes. Mild interstitial thickening most pronounced at the left lung base, unchanged. The heart remains mildly enlarged. No evidence for pulmonary edema. Stable left basilar pleural thickening. A few left basilar linear densities favor subsegmental atelectasis. This is also unchanged. No new focal lung consolidations. IMPRESSION: No significant change compared to the prior study. No acute process. Chronic findings as described above Electronically signed by: Dale Agarwal M.D. 09/29/2017 12:29 PM Dictated Date/Time: 09/29/2017 12:28 PM
[2017-09-29 13:09] LABS: HEMATOCRIT 33.5 % (42-52); HEMOGLOBIN 10.8 g/dL (14.0-18.0); MEAN CELL VOLUME 84.4 fL (80-100); MEAN CORPUSCULAR HEMOGLOBIN 27.2 pg (25-34); MEAN CORPUSCULAR HGB CONC 32.2 g/dl (32-36); MEAN PLATELET VOLUME 7.9 fL (7.4-10.4); PLATELET COUNT 238 K/uL (130-400); RED CELL DISTRIBUTION WIDTH CV 15.3 % (11.5-14.5); RED CELL DISTRIBUTION WIDTH SD 47.5 fL (36.4-46.3); WHITE BLOOD COUNT 11.02 K/uL (4.8-10.8)
[2017-09-29 13:17] LABS: INR 1.1 (0.9-1.1)
[2017-09-29 13:30] LABS: BASO % 0.1 %; BASO ABS # 0.01 K/uL (0-0.2); EOS % 0.5 %; EOS ABS # 0.05 K/uL (0-0.5); IG# 0.03 K/uL (0.00-0.02); LYMPH % 4.8 %; LYMPH ABS # 0.53 K/uL (1.2-3.4); MONO % 12.5 %; MONO ABS # 1.38 K/uL (0.11-0.59); NEUT % 81.8 %; NEUT ABS # 9.02 K/uL (1.4-6.5)
[2017-09-29 13:31] LABS: ALKALINE PHOSPHATASE 100 U/L (45-117); ALT/SGPT 13 U/L (12-78); AST/SGOT 15 U/L (15-37); BLOOD UREA NITROGEN 16 mg/dl (7-18); CALCIUM 8.6 mg/dl (8.5-10.1); CARBON DIOXIDE 26 mmol/L (21-32); CREATININE 0.97 mg/dl (0.60-1.40); GLUCOSE 97 mg/dl (70-99); LIPASE 72 U/L (73-393); POTASSIUM 3.7 mmol/L (3.5-5.1); SODIUM 137 mmol/L (136-145)
[2017-09-29] MEDS ORDERED: OPTIRAY 320 IV PRN (14:00)
--- NOTE | 2017-09-29 14:19 | DIAGNOSTIC IMAGING REPORT ---
ABDOMEN AND PELVIS CT WITH IV CONTRAST CT DOSE: 287.30 mGy.cm HISTORY: hematochezia TECHNIQUE: Multiaxial CT images of the abdomen and pelvis were performed following the use of intravenous contrast. A dose lowering technique was utilized adhering to the principles of ALARA. COMPARISON STUDY: Abdomen and pelvis CT 12/26/2014. FINDINGS: Multiple old, healed fractures seen within the ribs, left scapula, spine, and pelvis. Internal fixation of an old left hip fracture is again noted. These are similar to the prior studies and are therefore likely old. Interstitial thickening at the lung bases. This is likely chronic. Calcified granuloma within the right lung base. Patchy densities seen within the base of the left lower lobe. This may represent atelectasis or a pneumonia. No pneumoperitoneum. No pneumatosis. Trace pelvic free fluid. The bladder is unremarkable. Cholecystectomy. No hepatic or splenic masses. The adrenal glands, pancreas, and right kidney are within normal limits. A few subcentimeter hypodense lesions within the left kidney. These are too small to characterize but statistically represent cysts. No hydronephrosis. No retroperitoneal lymphadenopathy. Colonic diverticulosis. A long segment of large bowel wall thickening involving the majority of the transverse colon. This is consistent with a nonspecific colitis. Tiny fat-containing umbilical hernia. IMPRESSION: 1. Nonspecific transverse colitis. This favors an infectious or inflammatory process. 2. Multiple old, healed fractures are again noted. 3. Colonic diverticulosis. 4. Patchy densities at the base of the left lower lobe. This may represent atelectasis or pneumonia. Electronically signed by: Dale Agarwal M.D. 09/29/2017 2:18 PM Dictated Date/Time: 09/29/2017 2:06 PM
[2017-09-29] MEDS ORDERED: METHYLPREDNISOLONE 125 MG VIAL IV STA (14:31)
[2017-09-29] MEDS ORDERED: ALBUT/IPRATROP 3MG/0.5MG NEB 3 ML VIAL INH STA (14:31)
[2017-09-29] MEDS ORDERED: METRONIDAZOLE 500MG / 100ML NSS IV STA (14:31)
[2017-09-29] MEDS ORDERED: LEVAQUIN 750MG / 150ML D5W IV STA (14:31)
[2017-09-29] MEDS ORDERED: PANTOprazole INJ 40 MG in SYRINGE 0 ML IV ONE (15:15)
--- NOTE | 2017-09-29 15:16 | History and Physical ---
History & Physical Date & Time of Service: September 29, 2017 at 15:15 Chief Complaint: Bleeding From Rectum,Stomach Ache,Not Eating Primary Care Physician: Suleiman Rhoades D.O. History of Present Illness Source: patient, caregiver Patient is a 71-year-old male with past medical history of depression, rheumatoid arthritis, osteoporosis, gastroparesis, oral facial dyskinesia, moderate intellectual disabilities, GERD, hypothyroidism and other problems presents with history of intermittent rectal bleeding since yesterday. Patient is a poor historian. Most of the history is obtained from patient's certified caregiver and also from ER physician, old records. Patient noticed bright red blood per rectum associated with mild abdominal pain which is 3/10 intensity, sharp to dull, across the abdomen, non radiating, increases with movement and unrelated to food intake. He reports 2-4 BMs per days since yesterday. Never had colonoscopy as per patient and denies GI bleed in the past. His last Endoscopy was in 2014 which was normal. Takes buffered Aspirin (1-2 per day) for chronic pain. Denies being on any blood thinners or uses of NSAIDs. CT abd was suggestive of nonspecific transverse colitis and colonic diverticulosis. He is on chronic prednisone for RA. Rectal exam done by ED physician demonstrates red blood that is guaiac positive. Patient also reports chronic cough with intermittent clear expectoration since at least [address] showed Patchy densities at the base of the left lower lobe suggestive of Pneumonia. Denies any history of chest pain, SOB, pedal edema, hemoptysis, fever, chills, headache, nausea, vomiting, diarrhea, dysuria. Past Medical/Surgical History Medical Problems: (1) Acquired hypothyroidism (2) Acute cholecystitis (3) Acute cholecystitis (4) Acute cholecystitis (5) Altered mental status (6) Appendectomy (7) Back pain (8) Back pain (9) Back pain (10) Back pain, lumbosacral (11) Back pain, lumbosacral (12) Bilateral pneumonia (13) Bronchitis (14) Bronchitis (15) Chest pain (16) Chest pain (17) Chest pain (18) Chest pain, unspecified (19) CHF (congestive heart failure) (20) Compression fracture of thoracic spine, non-traumatic (21) Compression fractures to lumbar and thoracic spine (22) Dehydration (23) Depressive disorder (24) ESOPHAGEAL REFLUX (25) Fall (26) Fall (27) Fracture of humeral head, left, closed (28) Gastroesophageal reflux disease (29) Gastroparesis (30) GI bleed (31) HIP JOINT REPLACEMENT STATUS (32) Humeral fracture (33) Knee pain (34) Moderate intellectual disabilities (35) Negative history of heart attack (36) Orofacial dyskinesia (37) Osteoarthritis (38) Pelvis stress fracture (39) Respiratory failure (40) Respiratory failure (41) Rib fracture (42) Rib pain on left side (43) Right shoulder pain (44) Sepsis (45) Shoulder pain (46) SIRS (systemic inflammatory response syndrome) (47) Tachycardia (48) Tachycardia (49) Tinea corporis (50) Vomiting Surgical Problems: (1) History of cholecystectomy Family History Diabetes mellitus FH: heart disease Hypertension Reviewed. No relevant history Social History Smoking Status: Never Smoker Alcohol Use: none Drug Use: none Marital Status: Housing status: lives with significant other Occupational Status: retired Immunizations History of Influenza Vaccine: Unknown Influenza Vaccine Date: Feb 11, 2013 History of Tetanus Vaccine?: Unknown Tetanus Immunization Date: Jan 11, 2004 History of Pneumococcal: Unknown Pneumococcal Date: Apr 07, 2002 History of Hepatitis B Vaccine: Unknown Hepatitis Immunization Date: Apr 16, 2006 Allergies Coded Allergies: Metoclopramide (Verified Adverse Reaction, Intermediate, RAPID HR, 09/29/17 ) ADM. [id number]- REGLAN DOSE DECREASED,THEN INCREASED BY DR FIELD. PT NOW TOLERATING 10 MG ACHS. IF QUESTIONS,CALL [facility] GI. Home Medications Scheduled Calcium Lactate (Calcium Lactate), 1,296 MG PO DAILY Hydroxychloroquine Sulfate (Hydroxychloroquine Sulfat), 200 MG PO QPM Levothyroxine Sodium (Levothyroxine Sodium), 88 MCG PO DAILY Magnesium Oxide (Mg Supplement (Magnesium Oxide), 400 MG PO DAILY Omeprazole (Prilosec), 40 MG PO BID Pregabalin (Lyrica), 75 MG PO BID Tamsulosin Hcl (Flomax), 0.4 MG PO DAILY Tramadol (Ultram), 50 MG PO TID Scheduled PRN Albuterol Hfa (Ventolin Hfa), 2 PUFFS INH Q6H PRN for Wheezing Review of Systems See HPI for pertinent positives & negatives. A total of 10 systems reviewed and were otherwise negative. Physical Exam Vital Signs Date Time Temp Pulse Resp B/P (MAP) Pulse Ox O2 Delivery O2 Flow Rate FiO2 09/29/17 12:06 105 09/29/17 11:54 96 Room Air 09/29/17 11:28 36.6 114 20 125/74 96 Room Air General Appearance: WD/WN, no apparent distress Head: normocephalic, atraumatic Eyes: normal inspection, PERRL, EOMI, sclerae normal ENT: normal ENT inspection, hearing grossly normal Neck: supple, trachea midline Respiratory/Chest: chest non-tender, lungs clear, no respiratory distress, no accessory muscle use, + decreased breath sounds Cardiovascular: regular rate, rhythm, no edema, no murmur Abdomen/GI: normal bowel sounds, soft, + tenderness (Predominantly LUQ) Back: normal inspection Extremities/Musculoskelatal: normal inspection, no pedal edema, + pertinent finding (Rheumatoid arthritic changes noted) 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, no motor/sensory deficits, alert, normal mood/affect, oriented x 3, + pertinent finding (Chronic dysarthria) Skin: normal color, warm/dry Diagnostics Laboratory Results Results Past 24 Hours Test 09/29/17 12:54 Range/Units White Blood Count 11.02 4.8-10.8 K/uL Red Blood Count 3.97 4.7-6.1 M/uL Hemoglobin 10.8 14.0-18.0 g/dL Hematocrit 33.5 42-52 % Mean Corpuscular Volume 84.4 80-100 fL Mean Corpuscular Hemoglobin 27.2 25-34 pg Mean Corpuscular Hemoglobin Concent 32.2 32-36 g/dl Platelet Count 238 130-400 K/uL Mean Platelet Volume 7.9 7.4-10.4 fL Neutrophils (%) (Auto) 81.8 % Lymphocytes (%) (Auto) 4.8 % Monocytes (%) (Auto) 12.5 % Eosinophils (%) (Auto) 0.5 % Basophils (%) (Auto) 0.1 % Neutrophils # (Auto) 9.02 1.4-6.5 K/uL Lymphocytes # (Auto) 0.53 1.2-3.4 K/uL Monocytes # (Auto) 1.38 0.11-0.59 K/uL Eosinophils # (Auto) 0.05 0-0.5 K/uL Basophils # (Auto) 0.01 0-0.2 K/uL RDW Standard Deviation 47.5 36.4-46.3 fL RDW Coefficient of Variation 15.3 11.5-14.5 % Immature Granulocyte % (Auto) 0.3 % Immature Granulocyte # (Auto) 0.03 0.00-0.02 K/uL Prothrombin Time 11.4 9.0-12.0 SECONDS Prothromb Time International Ratio 1.1 0.9-1.1 Activated Partial Thromboplast Time 29.0 21.0-31.0 SECONDS Partial Thromboplastin Ratio 1.1 Sodium Level 137 136-145 mmol/L Potassium Level 3.7 3.5-5.1 mmol/L Chloride Level 106 98-107 mmol/L Carbon Dioxide Level 26 21-32 mmol/L Anion Gap 5.0 3-11 mmol/L Blood Urea Nitrogen 16 7-18 mg/dl Creatinine 0.97 0.60-1.40 mg/dl Est Creatinine Clear Calc Drug Dose 48.0 ml/min Estimated GFR () 89.4 Estimated GFR (Non- 77.1 BUN/Creatinine Ratio 16.4 10-20 Random Glucose 97 70-99 mg/dl Lactic Acid Level 1.3 0.4-2.0 mmol/L Calcium Level 8.6 8.5-10.1 mg/dl Total Bilirubin 0.5 0.2-1 mg/dl Direct Bilirubin 0.1 0-0.2 mg/dl Aspartate Amino Transf (AST/SGOT) 15 15-37 U/L Alanine Aminotransferase (ALT/SGPT) 13 12-78 U/L Alkaline Phosphatase 100 45-117 U/L Troponin I < 0.015 0-0.045 ng/ml Pro-B-Type Natriuretic Peptide 175 0-900 pg/ml Total Protein 7.0 6.4-8.2 gm/dl Albumin 3.0 3.4-5.0 gm/dl Lipase 72 73-393 U/L Microbiology Results 09/29/17 Blood Culture, Ordered Pending 09/29/17 Blood Culture, Ordered Pending Diagnostic Radiology CT ABD: 1. Nonspecific transverse colitis. This favors an infectious or inflammatory process. 2. Multiple old, healed fractures are again noted. 3. Colonic diverticulosis. 4. Patchy densities at the base of the left lower lobe. This may represent atelectasis or pneumonia. CXR: No significant change compared to the prior study. No acute process. Chronic findings as described above EKG EKG: NSR, No acute Ischemic changes Impression Assessment and Plan Rectal Bleeding: CT abd : suggestive of nonspecific transverse colitis. Colonic diverticulosis. H/O GERD Admit in Tele Last Endoscopy: in 2014: normal INR:normal Monitor H&H Transfuse PRBCs as needed Hold Aspirin Avoids NSAIDs Started on IV Protonix BID NPO after midnight, IV fluids GI consulted Empirically started on IV antibiotics for colitis Community Acquired Pneumonia: CT suggestive of Patchy densities at the base of the left lower lobe. Continue Levaquin Sinus Tachycardia: monitor in Tele H/O Rheumatoid arthritis: Hold Prednisone Started on solumedrol Follows with [facility] T[facility] as outpatient Continue Plaquenil Hypothyroidism continue levothyroxine monitor Moderate intellectual disabilities Stable GERD on PPI DVT Px: SCDs Re: GI bleed Code Status: Full Code Disposition: Monitor in Tele director client services consulted Resuscitation Status VTE Prophylaxis Will order VTE Prophylaxis: Yes Reason for no VTE drug order: Contraindicated
[2017-09-29 16:32] VITALS: Ht 152.4 cm; Wt 52.7 kg
[2017-09-29 17:17] LABS: HEMATOCRIT 33.5 % (42-52); HEMOGLOBIN 10.7 g/dL (14.0-18.0)
[2017-09-29 18:05] VITALS: BP 115/72; PULSE 103; TEMP 36.5; O2SAT 92
[2017-09-29] MEDS ORDERED: LEVOFLOXACIN CONSULT ACTIVE PRN (18:15)
[2017-09-29] MEDS ORDERED: METRONIDAZOLE CONSULT ACTIVE PRN (18:15)
[2017-09-29] MEDS: NSS + 20MEQ KCL 1000ML 1,000 ML IV SCH (19:10)
[2017-09-29 19:54] VITALS: PULSE 96; O2SAT 93
[2017-09-29] MEDS: ALBUT/IPRATROP 3MG/0.5MG NEB 3 ML VIAL INH SCH (19:54)
[2017-09-29] MEDS: PANTOprazole INJ 40 MG in SYRINGE 0 ML IV SCH (20:43)
[2017-09-29] MEDS: HYDROXYCHLOROQUINE SULFATE 200 MG TAB PO SCH (20:43)
[2017-09-29] MEDS: PREGABALIN 75 MG CAP PO SCH (20:43)
[2017-09-29 22:25] LABS: HEMOGLOBIN 10.5 g/dL (14.0-18.0)
[2017-09-30] VITALS (8 sets, daily range): BP systolic 124–176; BP diastolic 69–91; PULSE 89–99; TEMP 36.4–37; O2SAT 91–97
[2017-09-30] MEDS: METRONIDAZOLE 500MG / NSS IV SCH ×3 (00:27→16:07)
[2017-09-30 04:02] LABS: HEMATOCRIT 32.3 % (42-52); HEMOGLOBIN 10.5 g/dL (14.0-18.0); MEAN CELL VOLUME 84.8 fL (80-100); MEAN CORPUSCULAR HEMOGLOBIN 27.6 pg (25-34); MEAN CORPUSCULAR HGB CONC 32.5 g/dl (32-36); PLATELET COUNT 203 K/uL (130-400); RED CELL DISTRIBUTION WIDTH CV 15.4 % (11.5-14.5); RED CELL DISTRIBUTION WIDTH SD 47.7 fL (36.4-46.3); WHITE BLOOD COUNT 6.91 K/uL (4.8-10.8)
[2017-09-30 04:22] LABS: BLOOD UREA NITROGEN 13 mg/dl (7-18); CALCIUM 8.1 mg/dl (8.5-10.1); CARBON DIOXIDE 22 mmol/L (21-32); CREATININE 0.98 mg/dl (0.60-1.40); GLUCOSE 128 mg/dl (70-99); POTASSIUM 4.4 mmol/L (3.5-5.1); SODIUM 141 mmol/L (136-145)
[2017-09-30 04:30] LABS: IG# 0.02 K/uL (0.00-0.02); LYMPH % 3.6 %; LYMPH ABS # 0.25 K/uL (1.2-3.4); MONO ABS # 0.07 K/uL (0.11-0.59); NEUT % 95.1 %; NEUT ABS # 6.57 K/uL (1.4-6.5)
[2017-09-30] MEDS: NSS + 20MEQ KCL 1000ML 1,000 ML IV SCH ×2 (04:42→16:00)
[2017-09-30] MEDS: ALBUT/IPRATROP 3MG/0.5MG NEB 3 ML VIAL INH SCH (07:01)
[2017-09-30] MEDS ORDERED: PRED-301 PO (07:41)
[2017-09-30] MEDS ORDERED: ALBUT/IPRATROP 3MG/0.5MG NEB 3 ML VIAL INH PRN (08:00)
[2017-09-30] MEDS: PANTOprazole INJ 40 MG in SYRINGE 0 ML IV SCH ×2 (08:33→20:47)
--- NOTE | 2017-09-30 08:36 | Progress Note ---
Subjective Date of Service: September 30, 2017. Subjective Pt evaluation today including: conversation w/ patient, physical exam, lab review, review of studies, review of inpatient medication list Saw/examined the patient in room 221 moderate intellectual disability States he still has abdominal pain No bloody BMs since being here +cough and sputum production still present Problem List Medical Problems: (1) Colitis Status: Acute (2) Fall Status: Acute (3) Fall Status: Acute (4) Hematochezia Status: Acute (5) Pneumonia Status: Acute (6) Rib pain on left side Status: Acute (7) Shoulder pain Status: Acute Review of Systems Respiratory: + cough, + sputum, No wheezing, No shortness of breath, No dyspnea on exertion Cardiac: No chest pain, No edema, No palpitations Abdomen: + pain, + GI bleeding, No nausea, No vomiting, No diarrhea Medications Current Inpatient Medications Medications (Trade) Dose Ordered Sig/Soumya Route Start Time Stop Time Status Last Admin Dose Admin Ioversol (Optiray 320) 115 ml UD PRN IV 09/29/17 14:00 10/03/17 13:59 Potassium Chloride/Sodium Chloride 1,000 ml @ 100 mls/hr Q10H IV 09/29/17 18:30 10/29/17 16:10 09/30/17 04:42 100 MLS/HR Ondansetron HCl (Zofran Inj) 4 mg Q6H PRN IV 09/29/17 16:15 10/29/17 16:14 Acetaminophen 650 mg/Empty Bag 65 ml @ 260 mls/hr Q6H PRN IV 09/29/17 16:30 10/29/17 16:29 Levofloxacin (Consult) 1 ea UD PRN N/A 09/29/17 18:15 10/29/17 18:14 Pantoprazole Sodium 40 mg/ Syringe 10 ml @ 5 mls/min DAILY@, IV 09/29/17 21:00 10/29/17 20:59 09/29/17 20:43 5 MLS/MIN Methylprednisolone Sodium Succinate 40 mg/Syringe 0.64 ml @ 1.5 mls/min Q24H IV 09/30/17 16:00 10/30/17 15:59 Levothyroxine Sodium 44 mcg/ Syringe 2.2 ml @ 2 mls/min DAILY@09 IV 09/30/17 09:00 10/30/17 08:59 Hydroxychloroquine Sulfate (Plaquenil Tab) 200 mg QPM PO 09/29/17 21:00 10/29/17 20:59 09/29/17 20:43 200 MG Pregabalin (Lyrica Cap) 75 mg BID PO 09/29/17 21:00 10/29/17 20:59 09/29/17 20:43 75 MG Tamsulosin HCl (Flomax Cap) 0.4 mg DAILY PO 09/30/17 09:00 10/30/17 08:59 Metronidazole (Consult) 1 ea UD PRN N/A 09/29/17 18:15 10/29/17 18:14 Levofloxacin 750 mg/Prmx 150 ml @ 100 mls/hr Q48H IV 10/01/17 16:00 10/06/17 15:59 Metronidazole 500 mg/Prmx 100 ml @ 100 mls/hr Q8H IV 09/30/17 00:00 10/10/17 00:00 09/30/17 00:27 100 MLS/HR Albuterol/ Ipratropium (Duoneb) 3 ml Q4 PRN INH 09/30/17 08:00 10/30/17 07:59 Objective Vital Signs Date Time Temp Pulse Resp B/P (MAP) Pulse Ox O2 Delivery O2 Flow Rate FiO2 09/30/17 07:01 92 18 92 Room Air 09/30/17 07:00 36.5 90 18 140/69 (92) 91 Room Air 09/30/17 03:32 36.4 89 18 145/79 (101) 94 Room Air 09/30/17 00:09 36.7 99 18 124/76 (92) 91 Room Air 09/29/17 19:54 96 18 93 Room Air 09/29/17 18:05 36.5 103 22 115/72 (86) 92 Room Air 09/29/17 17:06 100 20 146/91 96 09/29/17 16:07 100 09/29/17 15:30 89 21 127/73 98 Room Air 09/29/17 13:30 98 20 96 Room Air 09/29/17 12:06 105 09/29/17 11:54 96 Room Air 09/29/17 11:28 36.6 114 20 125/74 96 Room Air Physical Exam General Appearance: no apparent distress Respiratory/Chest: lungs clear, normal breath sounds, no respiratory distress, no accessory muscle use Cardiovascular: regular rate, rhythm, no edema, no murmur Abdomen: normal bowel sounds, soft, + tenderness (diffusely) Laboratory Results Last 24 Hours Test 09/29/17 12:54 09/29/17 17:10 09/29/17 22:13 09/30/17 03:54 White Blood Count 11.02 K/uL 6.91 K/uL Red Blood Count 3.97 M/uL 3.81 M/uL Hemoglobin 10.8 g/dL 10.7 g/dL 10.5 g/dL 10.5 g/dL Hematocrit 33.5 % 33.5 % 33.0 % 32.3 % Mean Corpuscular Volume 84.4 fL 84.8 fL Mean Corpuscular Hemoglobin 27.2 pg 27.6 pg Mean Corpuscular Hemoglobin Concent 32.2 g/dl 32.5 g/dl Platelet Count 238 K/uL 203 K/uL Mean Platelet Volume 7.9 fL 8.0 fL Neutrophils (%) (Auto) 81.8 % 95.1 % Lymphocytes (%) (Auto) 4.8 % 3.6 % Monocytes (%) (Auto) 12.5 % 1.0 % Eosinophils (%) (Auto) 0.5 % 0.0 % Basophils (%) (Auto) 0.1 % 0.0 % Neutrophils # (Auto) 9.02 K/uL 6.57 K/uL Lymphocytes # (Auto) 0.53 K/uL 0.25 K/uL Monocytes # (Auto) 1.38 K/uL 0.07 K/uL Eosinophils # (Auto) 0.05 K/uL 0.00 K/uL Basophils # (Auto) 0.01 K/uL 0.00 K/uL RDW Standard Deviation 47.5 fL 47.7 fL RDW Coefficient of Variation 15.3 % 15.4 % Immature Granulocyte % (Auto) 0.3 % 0.3 % Immature Granulocyte # (Auto) 0.03 K/uL 0.02 K/uL Prothrombin Time 11.4 SECONDS Prothromb Time International Ratio 1.1 Activated Partial Thromboplast Time 29.0 SECONDS Partial Thromboplastin Ratio 1.1 Sodium Level 137 mmol/L 141 mmol/L Potassium Level 3.7 mmol/L 4.4 mmol/L Chloride Level 106 mmol/L 111 mmol/L Carbon Dioxide Level 26 mmol/L 22 mmol/L Anion Gap 5.0 mmol/L 8.0 mmol/L Blood Urea Nitrogen 16 mg/dl 13 mg/dl Creatinine 0.97 mg/dl 0.98 mg/dl Est Creatinine Clear Calc Drug Dose 48.0 ml/min 47.5 ml/min Estimated GFR () 89.4 88.3 Estimated GFR (Non- 77.1 76.2 BUN/Creatinine Ratio 16.4 12.7 Random Glucose 97 mg/dl 128 mg/dl Lactic Acid Level 1.3 mmol/L Calcium Level 8.6 mg/dl 8.1 mg/dl Total Bilirubin 0.5 mg/dl Direct Bilirubin 0.1 mg/dl Aspartate Amino Transf (AST/SGOT) 15 U/L Alanine Aminotransferase (ALT/SGPT) 13 U/L Alkaline Phosphatase 100 U/L Troponin I < 0.015 ng/ml < 0.015 ng/ml Pro-B-Type Natriuretic Peptide 175 pg/ml Total Protein 7.0 gm/dl Albumin 3.0 gm/dl Lipase 72 U/L Magnesium Level 1.9 mg/dl Assessment and Plan This is a 71 year old male with a past medical history of moderate intellectual disability, major depression, rheumatoid arthritis on chronic Plaquenil, hypothyroidism - presents with rectal bleeding, as well as cough x2 weeks and subsequently found to have possible pneumonia Rectal Bleeding - CT of the abdomen - nonspecific transverse colitis - H/H is stable, though lower than baseline (12 --> 10) - currently on IV Protonix - GI consulted for further input Community Acquired Pneumonia - CT of the abdomen - patchy densities at the LLL - continue Levaquin today Sinus Tachycardia - intermittently - likely secondary to intravascular depletion Hx. of Rheumatoid Arthritis - currently on solu-medrol and Plaquenil Hypothyroidism - continue Synthroid; converted to IV for now DVT ppx - SCDs FULL CODE
[2017-09-30] MEDS: TAMSULOSIN HCL 0.4 MG CAP PO SCH (09:00)
[2017-09-30] MEDS: PREGABALIN 75 MG CAP PO SCH ×2 (09:00→20:47)
[2017-09-30] MEDS: LEVOTHYROXINE SODIUM INJ 44 MCG in SYRINGE 0 ML IV SCH (09:57)
[2017-09-30] MEDS: ACETAMINOPHEN IV 650 MG in EMPTY BAG 0 ML IV PRN (09:57)
--- NOTE | 2017-09-30 11:53 | Gastrointestinal Consultation ---
Gastrointestinal Consultation Date of Consultation: September 30, 2017 Attending Physician: Dr.Salman Pedro Consulting Physician: Reason for Consultation: Rectal bleeding History of Present Illness Patient is a 71 year old male with medical comorbids of Rheumatoid arthritis, Osteoporosis, Moderate intellectual disabilities, GERD, hypothyroidism, brought to the hospital by his family for rectal bleeding, bright red blood for few episodes. Also reports some abdominal cramps associated with the bleeding. He denies any nausea or vomiting, no diarrhea or constipation, no similar episodes in the past. Said he never had a colonoscopy, EGD in [address] scan now showed diverticulosis and some thickening of the transverse colon. Past Medical/Surgical History Medical Problems: (1) Colitis Status: Acute (2) Fall Status: Acute (3) Fall Status: Acute (4) Hematochezia Status: Acute (5) Pneumonia Status: Acute (6) Rib pain on left side Status: Acute (7) Shoulder pain Status: Acute Family History Diabetes mellitus FH: heart disease Hypertension Social History Smoking Status: Never Smoker Alcohol Use: occasionally Drug Use: none Marital Status: Housing Status: lives with significant other Occupation Status: retired Allergies Coded Allergies: Metoclopramide (Verified Adverse Reaction, Intermediate, RAPID HR, 09/29/17 ) ADM. [id number]- REGLAN DOSE DECREASED,THEN INCREASED BY DR FIELD. PT NOW TOLERATING 10 MG ACHS. IF QUESTIONS,CALL [facility]. Current Medications Home Meds and Scripts Medications Dose Route/Sig Max Daily Dose Days Date Category Prednisone 5 Mg Tab 5 Mg PO DAILY 30 09/30/17 Reported Ventolin Hfa (Albuterol) 200 Puffs/46564 Mcg Aers 2 Puffs INH Q6H PRN 09/06/17 Reported Calcium Lactate 648 Mg Tab 1,296 Mg PO DAILY 05/23/17 Reported Prilosec (Omeprazole) 20 Mg Capcr 40 Mg PO BID 05/23/17 Reported Lyrica (Pregabalin) 75 Mg Cap 75 Mg PO BID 05/23/17 Reported Magnesium Oxide (Magnesium Oxide (Mg Supplement) 400 Mg Tab 400 Mg PO DAILY 05/23/17 Reported Flomax (Tamsulosin Hcl) 0.4 Mg Cap 0.4 Mg PO DAILY 10/28/14 Reported Ultram (Tramadol HCl) 50 Mg Tab 50 Mg PO TID 10/28/14 Reported Levothyroxine Sodium 88 Mcg Tab 88 Mcg PO DAILY 05/13/14 Reported Hydroxychloroquine Sulfat (Hydroxychloroquine Sulfate) 200 Mg Tab 200 Mg PO QPM 01/20/14 Reported Review of Systems Constitutional: No fever, No chills Eyes: No worsening of vision, No eye pain ENT: No hearing loss, No unusual epistaxis Respiratory: No cough, No sputum Cardiac: No chest pain, No orthopnea Abdomen: + see HPI Musculoskeletal: No joint pain Male : No dysuria, No urinary frequency Neuro: No paralysis, No weakness Heme: No abnormal bleeding/bruising Endo: No fatigue Skin: No rash Physical Exam Date Time Temp Pulse Resp B/P (MAP) Pulse Ox O2 Delivery O2 Flow Rate FiO2 09/30/17 07:01 92 18 92 Room Air 09/30/17 07:00 36.5 90 18 140/69 (92) 91 Room Air 09/30/17 03:32 36.4 89 18 145/79 (101) 94 Room Air 09/30/17 00:09 36.7 99 18 124/76 (92) 91 Room Air 09/29/17 19:54 96 18 93 Room Air 09/29/17 18:05 36.5 103 22 115/72 (86) 92 Room Air 09/29/17 17:06 100 20 146/91 96 09/29/17 16:07 100 09/29/17 15:30 89 21 127/73 98 Room Air 09/29/17 13:30 98 20 96 Room Air 09/29/17 12:06 105 09/29/17 11:54 96 Room Air General Appearance: no apparent distress Eyes: PERRL ENT: pharynx normal Neck: supple, no JVD Respiratory/Chest: lungs clear, normal breath sounds Cardiovascular: regular rate, rhythm, no JVD Abdomen: normal bowel sounds, non tender, soft Neurologic/Psych: oriented x 3 Skin: no jaundice Laboratory Results Last 24 Hours Test 09/29/17 12:54 09/29/17 17:10 09/29/17 22:13 09/30/17 03:54 White Blood Count 11.02 K/uL 6.91 K/uL Red Blood Count 3.97 M/uL 3.81 M/uL Hemoglobin 10.8 g/dL 10.7 g/dL 10.5 g/dL 10.5 g/dL Hematocrit 33.5 % 33.5 % 33.0 % 32.3 % Mean Corpuscular Volume 84.4 fL 84.8 fL Mean Corpuscular Hemoglobin 27.2 pg 27.6 pg Mean Corpuscular Hemoglobin Concent 32.2 g/dl 32.5 g/dl Platelet Count 238 K/uL 203 K/uL Mean Platelet Volume 7.9 fL 8.0 fL Neutrophils (%) (Auto) 81.8 % 95.1 % Lymphocytes (%) (Auto) 4.8 % 3.6 % Monocytes (%) (Auto) 12.5 % 1.0 % Eosinophils (%) (Auto) 0.5 % 0.0 % Basophils (%) (Auto) 0.1 % 0.0 % Neutrophils # (Auto) 9.02 K/uL 6.57 K/uL Lymphocytes # (Auto) 0.53 K/uL 0.25 K/uL Monocytes # (Auto) 1.38 K/uL 0.07 K/uL Eosinophils # (Auto) 0.05 K/uL 0.00 K/uL Basophils # (Auto) 0.01 K/uL 0.00 K/uL RDW Standard Deviation 47.5 fL 47.7 fL RDW Coefficient of Variation 15.3 % 15.4 % Immature Granulocyte % (Auto) 0.3 % 0.3 % Immature Granulocyte # (Auto) 0.03 K/uL 0.02 K/uL Prothrombin Time 11.4 SECONDS Prothromb Time International Ratio 1.1 Activated Partial Thromboplast Time 29.0 SECONDS Partial Thromboplastin Ratio 1.1 Sodium Level 137 mmol/L 141 mmol/L Potassium Level 3.7 mmol/L 4.4 mmol/L Chloride Level 106 mmol/L 111 mmol/L Carbon Dioxide Level 26 mmol/L 22 mmol/L Anion Gap 5.0 mmol/L 8.0 mmol/L Blood Urea Nitrogen 16 mg/dl 13 mg/dl Creatinine 0.97 mg/dl 0.98 mg/dl Est Creatinine Clear Calc Drug Dose 48.0 ml/min 47.5 ml/min Estimated GFR () 89.4 88.3 Estimated GFR (Non- 77.1 76.2 BUN/Creatinine Ratio 16.4 12.7 Random Glucose 97 mg/dl 128 mg/dl Lactic Acid Level 1.3 mmol/L Calcium Level 8.6 mg/dl 8.1 mg/dl Total Bilirubin 0.5 mg/dl Direct Bilirubin 0.1 mg/dl Aspartate Amino Transf (AST/SGOT) 15 U/L Alanine Aminotransferase (ALT/SGPT) 13 U/L Alkaline Phosphatase 100 U/L Troponin I < 0.015 ng/ml < 0.015 ng/ml Pro-B-Type Natriuretic Peptide 175 pg/ml Total Protein 7.0 gm/dl Albumin 3.0 gm/dl Lipase 72 U/L Magnesium Level 1.9 mg/dl Impression Patient is a 71 year old male admitted for bright red rectal bleeding with mild abdominal cramps, now resolved in the hospital. H/H stable and hemodynamically stable. CT scan with diverticulosis and thickening of transverse colon. No prior colonoscopy. Could be diverticular bleed, hemorrhoidal but need to r/o Malignancy, less likely infectious and CT scan pattern of colon involvement does not seem to suggest ischemic. Plan Will plan for colonoscopy tomorrow after bowel prep today. Golytely 4L to start at 4PM. Clear liquids for now and NPO after midnight. Explained to the patient the risk, benefit and alternatives and he agreed. I also spoke to his caregiver who also agreed for the procedure and indicated patient usually understands well and consents for himself.
[2017-09-30] MEDS ORDERED: LAVAGE SOLUTION 4000ML PO SCH (16:00)
[2017-09-30] MEDS: METHYLPREDNISOLONE IV 40 MG in SYRINGE 0 ML IV SCH (16:07)
[2017-09-30] MEDS: ONDANSETRON INJ 2 MG/ML 2 ML VIAL IV PRN (17:30)
[2017-09-30] MEDS: HYDROXYCHLOROQUINE SULFATE 200 MG TAB PO SCH (20:47)
[2017-10-01] MEDS: METRONIDAZOLE 500MG / NSS IV SCH ×3 (00:11→16:17)
[2017-10-01] MEDS: ACETAMINOPHEN IV 650 MG in EMPTY BAG 0 ML IV PRN ×2 (02:14→08:35)
[2017-10-01] MEDS: NSS + 20MEQ KCL 1000ML 1,000 ML IV SCH ×3 (02:14→21:06)
[2017-10-01 03:45] VITALS: BP 154/83; PULSE 93; TEMP 36.9; O2SAT 90
[2017-10-01 06:37] LABS: HEMATOCRIT 34.7 % (42-52); HEMOGLOBIN 11.3 g/dL (14.0-18.0); MEAN CELL VOLUME 83.8 fL (80-100); MEAN CORPUSCULAR HEMOGLOBIN 27.3 pg (25-34); MEAN CORPUSCULAR HGB CONC 32.6 g/dl (32-36); MEAN PLATELET VOLUME 7.9 fL (7.4-10.4); PLATELET COUNT 217 K/uL (130-400); RED CELL DISTRIBUTION WIDTH CV 15.6 % (11.5-14.5); RED CELL DISTRIBUTION WIDTH SD 47.6 fL (36.4-46.3); WHITE BLOOD COUNT 13.07 K/uL (4.8-10.8)
[2017-10-01 07:14] LABS: CALCIUM 8.1 mg/dl (8.5-10.1); CREATININE 0.84 mg/dl (0.60-1.40); POTASSIUM 3.8 mmol/L (3.5-5.1)
[2017-10-01 07:19] VITALS: BP 151/81; PULSE 95; TEMP 36.5; O2SAT 98
[2017-10-01] MEDS: ONDANSETRON INJ 2 MG/ML 2 ML VIAL IV PRN ×2 (08:02→08:03)
[2017-10-01] MEDS: PANTOprazole INJ 40 MG in SYRINGE 0 ML IV SCH ×2 (08:04→21:07)
[2017-10-01] MEDS: LEVOTHYROXINE SODIUM INJ 44 MCG in SYRINGE 0 ML IV SCH (08:34)
--- NOTE | 2017-10-01 09:21 | Progress Note ---
Progress Note Date of Service October 01, 2017. (Leti Joseph CRNP) Progress Note GI quick note: Patient is a 71 year old male seen for BRBPR, w mild abd cramps. CT showed diverticulosis and thickening of transverse colon. He was scheduled for colonoscopy today but couldn't drink more than 12 oz of Golytely prep. Was having n/v. No rectal bleeding, dark tarry stools overnight. On exam today, no abd pain on palpations. VS, Labs reviewed. H/H stable: , INR 1.1. PLANS: - Cancel colonoscopy today - CL diet, NPO after midnight - Will plan for colonoscopy tomorrow with Miralax/Bisacodyl bowel prep. Will give Phenergan 12.5mg pre med 30 mins prior to each bowel prep. (Leti Joseph CRNP) Attending attestation I have seen, examined this patient, and agree with the findings and above by our mid-level provider Anitha Berger. -Admitted with painful rectal bleeding, none since admission. -Planned for colonosocpy today, however, patient did not drink prep -Differential dx would include infectious and inflammatory colitis, diverticular , malignancy. -Will discuss with family on how to proceed, he is pretty adamant that he can not take prep -Stool Cx, continue IV ABX -NPO after MN, if drinks Miralax prep then will plan for colon tomorrow. The contributing factor is his mental capacity and complexity, he apparently does not have a POA, I am not sure he can give informed consent. Consider abx treatment and f/u as outpatient including colonoscopy if does not occur as inpatient. (Donnie Grace MD)
[2017-10-01] MEDS: TAMSULOSIN HCL 0.4 MG CAP PO SCH (11:07)
[2017-10-01] MEDS: PREGABALIN 75 MG CAP PO SCH ×2 (11:11→21:06)
[2017-10-01 11:55] VITALS: BP 152/68; PULSE 101; TEMP 36.6; O2SAT 100
[2017-10-01 15:28] VITALS: BP 135/82; PULSE 116; TEMP 36.8; O2SAT 97
[2017-10-01] MEDS ORDERED: LEVOFLOXACIN 750MG / D5W IV SCH (16:00)
[2017-10-01] MEDS: METHYLPREDNISOLONE IV 40 MG in SYRINGE 0 ML IV SCH (16:17)
[2017-10-01] MEDS ORDERED: PROMETHAZINE HCL 25 MG TAB PO ONE ×2 (16:30→20:30)
--- NOTE | 2017-10-01 16:33 | Progress Note ---
Subjective Date of Service: October 01, 2017. Subjective Pt evaluation today including: conversation w/ patient, physical exam, lab review, review of studies, review of inpatient medication list Saw/examined the patient in room 221 He's more agitated today; appears in mild distress but does not state he is in pain Difficult to obtain more history due to mental status Problem List Medical Problems: (1) Colitis Status: Acute (2) Fall Status: Acute (3) Fall Status: Acute (4) Hematochezia Status: Acute (5) Pneumonia Status: Acute (6) Rib pain on left side Status: Acute (7) Shoulder pain Status: Acute Medications Current Inpatient Medications Medications (Trade) Dose Ordered Sig/Soumya Route Start Time Stop Time Status Last Admin Dose Admin Ioversol (Optiray 320) 115 ml UD PRN IV 09/29/17 14:00 10/03/17 13:59 Potassium Chloride/Sodium Chloride 1,000 ml @ 100 mls/hr Q10H IV 09/29/17 18:30 10/29/17 16:10 10/01/17 11:07 100 MLS/HR Ondansetron HCl (Zofran Inj) 4 mg Q6H PRN IV 09/29/17 16:15 10/29/17 16:14 10/01/17 08:03 4 MG Acetaminophen 650 mg/Empty Bag 65 ml @ 260 mls/hr Q6H PRN IV 09/29/17 16:30 10/29/17 16:29 10/01/17 08:35 260 MLS/HR Levofloxacin (Consult) 1 ea UD PRN N/A 09/29/17 18:15 10/29/17 18:14 Pantoprazole Sodium 40 mg/ Syringe 10 ml @ 5 mls/min DAILY@ IV 09/29/17 21:00 10/29/17 20:59 10/01/17 08:04 5 MLS/MIN Methylprednisolone Sodium Succinate 40 mg/Syringe 0.64 ml @ 1.5 mls/min Q24H IV 09/30/17 16:00 10/30/17 15:59 10/01/17 16:17 1.5 MLS/MIN Levothyroxine Sodium 44 mcg/ Syringe 2.2 ml @ 2 mls/min DAILY@09 IV 09/30/17 09:00 6/19/18 08:59 10/01/17 08:34 2 MLS/MIN Hydroxychloroquine Sulfate (Plaquenil Tab) 200 mg QPM PO 09/29/17 21:00 10/29/17 20:59 09/30/17 20:47 200 MG Pregabalin (Lyrica Cap) 75 mg BID PO 09/29/17 21:00 10/29/17 20:59 10/01/17 11:11 75 MG Tamsulosin HCl (Flomax Cap) 0.4 mg DAILY PO 09/30/17 09:00 10/30/17 08:59 10/01/17 11:07 0.4 MG Metronidazole (Consult) 1 ea UD PRN N/A 09/29/17 18:15 10/29/17 18:14 Levofloxacin 750 mg/Prmx 150 ml @ 100 mls/hr Q48H IV 10/01/17 16:00 10/06/17 15:59 Metronidazole 500 mg/Prmx 100 ml @ 100 mls/hr Q8H IV 09/30/17 00:00 10/10/17 00:00 10/01/17 16:17 100 MLS/HR Albuterol/ Ipratropium (Duoneb) 3 ml Q4 PRN INH 09/30/17 08:00 10/30/17 07:59 Polyethylene (Miralax Powder Packet) 119 gm ONE ONCE PO 10/01/17 17:00 10/01/17 17:01 Bisacodyl (Dulcolax Tab) 20 mg ONE ONCE PO 10/01/17 17:00 10/01/17 17:01 Polyethylene (Miralax Powder Packet) 119 gm ONE ONCE PO 10/01/17 21:00 10/01/17 21:01 Promethazine HCl (Phenergan Tab) 12.5 mg ONE ONCE PO 10/01/17 16:30 10/01/17 16:31 10/01/17 16:17 12.5 MG Promethazine HCl (Phenergan Tab) 12.5 mg ONE ONCE PO 10/01/17 20:30 10/01/17 20:31 Objective Vital Signs Date Time Temp Pulse Resp B/P (MAP) Pulse Ox O2 Delivery O2 Flow Rate FiO2 10/01/17 15:28 36.8 116 20 135/82 (99) 97 Room Air 10/01/17 12:00 Room Air 10/01/17 11:55 36.6 101 20 152/68 (96) 100 Room Air 10/01/17 08:00 Room Air 10/01/17 07:19 36.5 95 20 151/81 (104) 98 Room Air 10/01/17 04:00 Room Air 10/01/17 03:45 36.9 93 16 154/83 (106) 90 Room Air 10/01/17 00:00 Room Air 09/30/17 23:43 37.0 94 18 160/87 (111) 97 Room Air 09/30/17 20:00 Room Air 09/30/17 19:14 37.0 91 18 176/91 (119) 91 Room Air Physical Exam General Appearance: + mild distress Respiratory/Chest: lungs clear, normal breath sounds, no respiratory distress, no accessory muscle use Cardiovascular: no edema, no murmur, + tachycardia Abdomen: normal bowel sounds, non tender, soft Neurologic/Psychiatric: alert, + pertinent finding (cognitive dysfunction) Laboratory Results Last 24 Hours Test 10/01/17 06:26 White Blood Count 13.07 K/uL Red Blood Count 4.14 M/uL Hemoglobin 11.3 g/dL Hematocrit 34.7 % Mean Corpuscular Volume 83.8 fL Mean Corpuscular Hemoglobin 27.3 pg Mean Corpuscular Hemoglobin Concent 32.6 g/dl RDW Standard Deviation 47.6 fL RDW Coefficient of Variation 15.6 % Platelet Count 217 K/uL Mean Platelet Volume 7.9 fL Sodium Level 140 mmol/L Potassium Level 3.8 mmol/L Chloride Level 109 mmol/L Carbon Dioxide Level 19 mmol/L Anion Gap 12.0 mmol/L Blood Urea Nitrogen 14 mg/dl Creatinine 0.84 mg/dl Est Creatinine Clear Calc Drug Dose 55.4 ml/min Estimated GFR () 100.7 Estimated GFR (Non- 86.9 BUN/Creatinine Ratio 16.7 Random Glucose 99 mg/dl Calcium Level 8.1 mg/dl Assessment and Plan This is a 71 year old male with a past medical history of moderate intellectual disability, major depression, rheumatoid arthritis on chronic Plaquenil, hypothyroidism - presents with rectal bleeding, as well as cough x2 weeks and subsequently found to have possible pneumonia Rectal Bleeding 10/01 - bowel prep - colonoscopy on 10/02 - H/H is stable 09/30 - CT of the abdomen - nonspecific transverse colitis - H/H is stable, though lower than baseline (12 --> 10) - currently on IV Protonix - GI consulted for further input Community Acquired Pneumonia - CT of the abdomen - patchy densities at the LLL - continue Levaquin Sinus Tachycardia - intermittently - likely secondary to intravascular depletion Hx. of Rheumatoid Arthritis - currently on solu-medrol and Plaquenil - switch back to prednisone when tolerating PO intake Hypothyroidism - continue Synthroid; converted to IV for now DVT ppx - SCDs FULL CODE
[2017-10-01] MEDS ORDERED: BISACODYL 5 MG TABEC PO ONE (17:00)
[2017-10-01] MEDS ORDERED: POLYETHYLENE (MIRALAX) 17 GM PACK PO ONE ×2 (17:00→21:00)
[2017-10-01 19:29] VITALS: BP 157/80; PULSE 123; TEMP 36.8; O2SAT 97
[2017-10-01] MEDS: HYDROXYCHLOROQUINE SULFATE 200 MG TAB PO SCH (21:07)
[2017-10-01 23:33] VITALS: BP 131/86; PULSE 125; TEMP 36.4; O2SAT 96
[2017-10-02] VITALS (8 sets, daily range): BP systolic 124–158; BP diastolic 74–90; PULSE 79–108; TEMP 36.4–37.2; O2SAT 91–98
[2017-10-02] MEDS: METRONIDAZOLE 500MG / NSS IV SCH ×4 (00:01→23:58)
[2017-10-02] MEDS: ACETAMINOPHEN IV 650 MG in EMPTY BAG 0 ML IV PRN ×2 (02:30→16:52)
[2017-10-02] MEDS: NSS + 20MEQ KCL 1000ML 1,000 ML IV SCH ×2 (05:59→21:37)
[2017-10-02] MEDS: PREGABALIN 75 MG CAP PO SCH ×2 (07:48→21:41)
[2017-10-02] MEDS: PANTOprazole INJ 40 MG in SYRINGE 0 ML IV SCH ×2 (07:49→21:38)
[2017-10-02] MEDS: TAMSULOSIN HCL 0.4 MG CAP PO SCH (07:49)
[2017-10-02 08:10] LABS: HEMATOCRIT 39.9 % (42-52); MEAN CELL VOLUME 83.8 fL (80-100); MEAN CORPUSCULAR HEMOGLOBIN 27.3 pg (25-34); MEAN CORPUSCULAR HGB CONC 32.6 g/dl (32-36); MEAN PLATELET VOLUME 8.1 fL (7.4-10.4); PLATELET COUNT 182 K/uL (130-400); RED CELL DISTRIBUTION WIDTH CV 15.6 % (11.5-14.5); RED CELL DISTRIBUTION WIDTH SD 47.5 fL (36.4-46.3); WHITE BLOOD COUNT 10.26 K/uL (4.8-10.8)
[2017-10-02 08:35] LABS: CALCIUM 8.6 mg/dl (8.5-10.1); CREATININE 0.85 mg/dl (0.60-1.40); POTASSIUM 3.8 mmol/L (3.5-5.1)
[2017-10-02] MEDS: LEVOTHYROXINE SODIUM INJ 44 MCG in SYRINGE 0 ML IV SCH (08:54)
--- NOTE | 2017-10-02 10:42 | Gastroenterology Progress Note ---
Progress Note Date of Service: October 02, 2017 Subjective Pt evaluation today including: conversation w/ patient, physical exam, chart review, lab review Pt was seen and evaluated, chart reviewed. Is NPO for colonoscopy. Per nursing staff he tolerated colon prep w/ good response. Has been having clear stools. No return of rectal bleeding. Feels well, wants to continue with colonoscopy as scheduled today. Denies nausea, vomiting, CP, SOB. Review of Systems Constitutional: No fever, No chills Respiratory: No cough, No shortness of breath Cardiac: No chest pain, No edema Abdomen: + diarrhea, No pain, No nausea, No vomiting, No constipation, No GI bleeding Medications Current Inpatient Medications Medications (Trade) Dose Ordered Sig/Soumya Route Start Time Stop Time Status Last Admin Dose Admin Ioversol (Optiray 320) 115 ml UD PRN IV 09/29/17 14:00 10/03/17 13:59 Potassium Chloride/Sodium Chloride 1,000 ml @ 100 mls/hr Q10H IV 09/29/17 18:30 10/29/17 16:10 10/02/17 05:59 100 MLS/HR Ondansetron HCl (Zofran Inj) 4 mg Q6H PRN IV 09/29/17 16:15 10/29/17 16:14 10/01/17 08:03 4 MG Acetaminophen 650 mg/Empty Bag 65 ml @ 260 mls/hr Q6H PRN IV 09/29/17 16:30 10/29/17 16:29 10/02/17 02:30 260 MLS/HR Levofloxacin (Consult) 1 ea UD PRN N/A 09/29/17 18:15 10/29/17 18:14 Pantoprazole Sodium 40 mg/ Syringe 10 ml @ 5 mls/min DAILY@ IV 09/29/17 21:00 10/29/17 20:59 10/02/17 07:49 5 MLS/MIN Methylprednisolone Sodium Succinate 40 mg/Syringe 0.64 ml @ 1.5 mls/min Q24H IV 09/30/17 16:00 10/30/17 15:59 10/01/17 16:17 1.5 MLS/MIN Levothyroxine Sodium 44 mcg/ Syringe 2.2 ml @ 2 mls/min DAILY@09 IV 09/30/17 09:00 10/30/17 08:59 10/02/17 08:54 2 MLS/MIN Hydroxychloroquine Sulfate (Plaquenil Tab) 200 mg QPM PO 09/29/17 21:00 10/29/17 20:59 10/01/17 21:07 200 MG Pregabalin (Lyrica Cap) 75 mg BID PO 09/29/17 21:00 10/29/17 20:59 10/02/17 07:48 75 MG Tamsulosin HCl (Flomax Cap) 0.4 mg DAILY PO 09/30/17 09:00 10/30/17 08:59 10/02/17 07:49 0.4 MG Metronidazole (Consult) 1 ea UD PRN N/A 09/29/17 18:15 10/29/17 18:14 Levofloxacin 750 mg/Prmx 150 ml @ 100 mls/hr Q48H IV 10/01/17 16:00 10/06/17 15:59 10/01/17 17:31 100 MLS/HR Metronidazole 500 mg/Prmx 100 ml @ 100 mls/hr Q8H IV 09/30/17 00:00 10/10/17 00:00 10/02/17 07:49 100 MLS/HR Albuterol/ Ipratropium (Duoneb) 3 ml Q4 PRN INH 09/30/17 08:00 10/30/17 07:59 Objective Vital Signs Date Time Temp Pulse Resp B/P (MAP) Pulse Ox O2 Delivery O2 Flow Rate FiO2 10/02/17 08:00 Room Air 10/02/17 07:39 36.4 102 18 158/82 (107) 98 10/02/17 04:00 Room Air 10/02/17 03:43 36.9 108 23 155/90 (111) 98 Room Air 10/02/17 00:00 Room Air 10/01/17 23:33 36.4 125 20 131/86 (101) 96 Room Air 10/01/17 20:00 Room Air 10/01/17 19:29 36.8 123 20 157/80 (105) 97 Room Air 10/01/17 16:00 Room Air 10/01/17 15:28 36.8 116 20 135/82 (99) 97 Room Air 10/01/17 12:00 Room Air 10/01/17 11:55 36.6 101 20 152/68 (96) 100 Room Air Physical Exam General Appearance: no apparent distress Eyes: PERRL ENT: hearing grossly normal Neck: supple, trachea midline Respiratory/Chest: lungs clear, normal breath sounds Cardiovascular: regular rate, rhythm, no JVD Abdomen: normal bowel sounds, non tender, soft, no organomegaly Neurologic/Psych: alert, normal mood/affect, oriented x 3 Skin: normal color, no jaundice, warm/dry, no rash Laboratory Results Last 24 Hours Test 10/02/17 07:47 White Blood Count 10.26 K/uL Red Blood Count 4.76 M/uL Hemoglobin 13.0 g/dL Hematocrit 39.9 % Mean Corpuscular Volume 83.8 fL Mean Corpuscular Hemoglobin 27.3 pg Mean Corpuscular Hemoglobin Concent 32.6 g/dl RDW Standard Deviation 47.5 fL RDW Coefficient of Variation 15.6 % Platelet Count 182 K/uL Mean Platelet Volume 8.1 fL Sodium Level 139 mmol/L Potassium Level 3.8 mmol/L Chloride Level 110 mmol/L Carbon Dioxide Level 18 mmol/L Anion Gap 11.0 mmol/L Blood Urea Nitrogen 12 mg/dl Creatinine 0.85 mg/dl Est Creatinine Clear Calc Drug Dose 54.7 ml/min Estimated GFR () 100.2 Estimated GFR (Non- 86.4 BUN/Creatinine Ratio 14.3 Random Glucose 86 mg/dl Calcium Level 8.6 mg/dl Magnesium Level 2.1 mg/dl Assessment and Plan 71 year old male seen for BRBPR, w mild abd cramps. CT showed diverticulosis and thickening of transverse colon. Has prepped for colonoscopy w/ good response without any recurrence of rectal bleeding per nursing staff. He was hypertensive this AM w/ tachycardia. Labs stable w/ improving HGB NPO Colonoscopy today Please see colonoscopy report for additional recommendations Attending attestation I have seen, examined this patient, and agree with the findings and above by our mid-level provider Anitha Soares. -No further rectal bleeding, colonoscopy for ct abnormality
[2017-10-02] MEDS ORDERED: LIDOCAINE HCL 2% 2 ML VIAL (20MG/ML) ONE (12:22)
[2017-10-02] MEDS ORDERED: ESMOLOL HCL 10 MG/ML 10 ML VIAL ONE (12:22)
[2017-10-02] MEDS ORDERED: PROPOFOL IV EMULSION 10 MG/ML 20 ML VIAL ONE (12:22)
[2017-10-02] MEDS ORDERED: LABETALOL HCL IV 5 MG/ML 20ML ONE (12:22)
--- NOTE | 2017-10-02 12:24 | GI REPORT ---
Patient Name: Hao Brown Procedure Date: 10/02/2017 11:44 AM Date of : 1945 Admit Type: Inpatient Age: 71 Gender: Male Attending MD: Donnie Grace MD Procedure: Colonoscopy Providers: Donnie Grace MD Referring MD: Carissa Blanton Indications: Rectal bleeding and abnormal CT scan Medicines: Monitored Anesthesia Care Complications: No immediate complications. Estimated blood loss: None. Estimated Blood Loss: Estimated blood loss: none. Procedure: Pre-Anesthesia Assessment: - Pre-Anesthesia Assessment: - Prior to the procedure, a History and Physical was performed, and patient medications, allergies and sensitivities were reviewed. The patient's tolerance of previous anesthesia was reviewed. Please see [employer] for complete details. - The risks and benefits of the procedure and the sedation options and risks were discussed with the patient. All questions were answered and informed consent was obtained. - Patient identification and proposed procedure were verified prior to the procedure by the physician and the nurse. The procedure was verified in the pre-procedure area in the procedure room. After obtaining informed consent, the endoscope was passed carefully and meticuously under direct vision and only advanced when the lumen was clearly identified, C02 insuflation was utilized throughout the entirity of the procedure. Throughout the procedure, the patient's blood pressure, pulse, and oxygen saturations were monitored continuously. After I obtained informed consent, the scope was passed under direct vision. Throughout the procedure, the patient's blood pressure, pulse, and oxygen saturations were monitored continuously. The scope was introduced through the anus and advanced to the cecum, identified by appendiceal orifice and ileocecal valve. The colonoscopy was performed without difficulty. The patient tolerated the procedure well. The quality of the bowel preparation was good. Findings: A patchy area of moderately inflamed and ulcerated mucosa was found in the transverse colon. With one long linear ulcer. This was biopsied with a cold forceps for histology. Multiple small-mouthed diverticula were found in the sigmoid colon. The terminal ileum appeared normal. Impression: - Inflamed and ulcerated mucosa in the transverse colon. Biopsied. - Diverticulosis in the sigmoid colon. - The examined portion of the ileum was normal. Recommendation: - [facility]. - Follow Pathology - Endoscopic images were consistent and concerning for ischemic colitis, mild to moderate. - Review CT scan with radiology to ensure no isolated lesion amendable to therapeutic intervention. - Slowly advance diet, continue Abx, if worsens will need surgical consultation Donnie Grace MD 10/02/2017 12:23:33 PM This report has been signed electronically. Note Initiated On: 10/02/2017 11:44 AM Number of Addenda: 0 I attest to the content of the Intraoperative Record and orders documented therein, exceptions below {[id number]}
--- NOTE | 2017-10-02 13:17 | Anesthesiology Progress Note ---
Anesthesia Post Op Note Date & Time October 02, 2017 at 13:17 Vital Signs Pain Intensity: 0.0 Vital Signs Past 12 Hours Date Time Temp Pulse Resp B/P (MAP) Pulse Ox O2 Delivery O2 Flow Rate FiO2 10/02/17 12:48 82 20 139/80 (99) 96 Room Air 10/02/17 12:33 92 20 132/81 (98) 96 Room Air 10/02/17 12:18 92 16 120/62 (81) 95 Room Air 10/02/17 11:06 37.1 120 20 149/93 (111) 96 Room Air 10/02/17 08:00 Room Air 10/02/17 07:39 36.4 102 18 158/82 (107) 98 10/02/17 04:00 Room Air 10/02/17 03:43 36.9 108 23 155/90 (111) 98 Room Air Notes Mental Status: alert / awake / arousable, participated in evaluation Pt Amnestic to Procedure: Yes Nausea / Vomiting: adequately controlled Pain: adequately controlled Airway Patency, RR, SpO2: stable & adequate BP & HR: stable & adequate Hydration State: stable & adequate Anesthetic Complications: no major complications apparent
[2017-10-02] MEDS: METHYLPREDNISOLONE IV 40 MG in SYRINGE 0 ML IV SCH (16:24)
[2017-10-02] MEDS: ONDANSETRON INJ 2 MG/ML 2 ML VIAL IV PRN (16:24)
--- NOTE | 2017-10-02 17:56 | Progress Note ---
Medicine Progress Note Date & Time of Visit: October 02, 2017 at 17:56. Subjective Patient reports some ongoing abdominal pain, but states he received medications that seemed to help. He denies any other complaints. His speech is difficult at times to understand. No overnight events noted other than taking the colonoscopy prep and having diarrhea. No blood in stool. Objective Last 8 Hrs Date Time Temp Pulse Resp B/P (MAP) Pulse Ox O2 Delivery O2 Flow Rate FiO2 10/02/17 15:47 36.9 92 16 135/82 (99) 97 Room Air 10/02/17 13:23 36.8 79 18 130/84 (99) 98 10/02/17 13:00 Room Air 10/02/17 12:48 82 20 139/80 (99) 96 Room Air 10/02/17 12:33 92 20 132/81 (98) 96 Room Air 10/02/17 12:18 92 16 120/62 (81) 95 Room Air 10/02/17 11:06 37.1 120 20 149/93 (111) 96 Room Air Physical Exam: GENERAL: Patient is in no acute distress. HEENT: No acute trauma, normocephalic, mucous membranes moist, no nasal congestion, no scleral icterus. NECK: No stridor, trachea is midline. LUNGS: Diminished bilaterally, no wheeze, no rhonchi, breath sounds equal. HEART: Without murmurs gallops or rubs, regular rate and rhythm. ABDOMEN: Soft, nontender, bowel sounds positive EXTREMITIES: No cyanosis or edema, moving of all the extremities without pain or difficulty, no signs for acute trauma. NEUROLOGIC: Oriented, no acute motor or sensory deficits, no focal weakness. SKIN: No rash, no jaundice, no diaphoresis. Laboratory Results: Last 24 Hours Test 10/02/17 07:47 White Blood Count 10.26 K/uL Red Blood Count 4.76 M/uL Hemoglobin 13.0 g/dL Hematocrit 39.9 % Mean Corpuscular Volume 83.8 fL Mean Corpuscular Hemoglobin 27.3 pg Mean Corpuscular Hemoglobin Concent 32.6 g/dl RDW Standard Deviation 47.5 fL RDW Coefficient of Variation 15.6 % Platelet Count 182 K/uL Mean Platelet Volume 8.1 fL Sodium Level 139 mmol/L Potassium Level 3.8 mmol/L Chloride Level 110 mmol/L Carbon Dioxide Level 18 mmol/L Anion Gap 11.0 mmol/L Blood Urea Nitrogen 12 mg/dl Creatinine 0.85 mg/dl Est Creatinine Clear Calc Drug Dose 54.7 ml/min Estimated GFR () 100.2 Estimated GFR (Non- 86.4 BUN/Creatinine Ratio 14.3 Random Glucose 86 mg/dl Calcium Level 8.6 mg/dl Magnesium Level 2.1 mg/dl Assessment & Plan GI BLEED: -bright red per rectum -GI consulted, colonoscopy today -H&H is stable -CT of the abdomen - nonspecific transverse colitis -on IV Protonix -on antibiotics, levaquin and flagyl CAP -CT of the abdomen - patchy densities at the LLL -continue Levaquin SINUS TACHYCARDIA: -intermittently -likely secondary to intravascular depletion RHEUMATOID ARTHRITIS -currently on solu-medrol and Plaquenil -switch back to prednisone when tolerating PO intake HYPOTHYROIDISM: -continue Synthroid Current Inpatient Medications: Current Inpatient Medications Medications (Trade) Dose Ordered Sig/Soumya Route Start Time Stop Time Status Last Admin Dose Admin Ioversol (Optiray 320) 115 ml UD PRN IV 09/29/17 14:00 10/03/17 13:59 Potassium Chloride/Sodium Chloride 1,000 ml @ 100 mls/hr Q10H IV 09/29/17 18:30 10/29/17 16:10 10/02/17 05:59 100 MLS/HR Ondansetron HCl (Zofran Inj) 4 mg Q6H PRN IV 09/29/17 16:15 10/29/17 16:14 10/02/17 16:24 4 MG Acetaminophen 650 mg/Empty Bag 65 ml @ 260 mls/hr Q6H PRN IV 09/29/17 16:30 10/29/17 16:29 10/02/17 16:52 260 MLS/HR Levofloxacin (Consult) 1 ea UD PRN N/A 09/29/17 18:15 10/29/17 18:14 Pantoprazole Sodium 40 mg/ Syringe 10 ml @ 5 mls/min DAILY@,21 IV 09/29/17 21:00 10/29/17 20:59 10/02/17 07:49 5 MLS/MIN Methylprednisolone Sodium Succinate 40 mg/Syringe 0.64 ml @ 1.5 mls/min Q24H IV 09/30/17 16:00 10/30/17 15:59 10/02/17 16:24 1.5 MLS/MIN Levothyroxine Sodium 44 mcg/ Syringe 2.2 ml @ 2 mls/min DAILY@09 IV 09/30/17 09:00 10/30/17 08:59 10/02/17 08:54 2 MLS/MIN Hydroxychloroquine Sulfate (Plaquenil Tab) 200 mg QPM PO 09/29/17 21:00 10/29/17 20:59 10/01/17 21:07 200 MG Pregabalin (Lyrica Cap) 75 mg BID PO 09/29/17 21:00 10/29/17 20:59 10/02/17 07:48 75 MG Tamsulosin HCl (Flomax Cap) 0.4 mg DAILY PO 09/30/17 09:00 10/30/17 08:59 10/02/17 07:49 0.4 MG Metronidazole (Consult) 1 ea UD PRN N/A 09/29/17 18:15 10/29/17 18:14 Levofloxacin 750 mg/Prmx 150 ml @ 100 mls/hr Q48H IV 10/01/17 16:00 10/06/17 15:59 10/01/17 17:31 100 MLS/HR Metronidazole 500 mg/Prmx 100 ml @ 100 mls/hr Q8H IV 09/30/17 00:00 10/10/17 00:00 10/02/17 16:24 100 MLS/HR Albuterol/ Ipratropium (Duoneb) 3 ml Q4 PRN INH 09/30/17 08:00 10/30/17 07:59
[2017-10-02] MEDS: HYDROXYCHLOROQUINE SULFATE 200 MG TAB PO SCH (21:38)
[2017-10-03 03:35] VITALS: BP 158/94; PULSE 102; TEMP 36.9; O2SAT 98
[2017-10-03 07:11] VITALS: BP 165/85; PULSE 84; TEMP 37.2; O2SAT 95
[2017-10-03] MEDS: PANTOprazole INJ 40 MG in SYRINGE 0 ML IV SCH ×2 (07:54→20:56)
[2017-10-03] MEDS: METRONIDAZOLE 500MG / NSS IV SCH ×2 (07:54→16:25)
[2017-10-03] MEDS: TAMSULOSIN HCL 0.4 MG CAP PO SCH (07:55)
[2017-10-03] MEDS: NSS + 20MEQ KCL 1000ML 1,000 ML IV SCH (07:55)
[2017-10-03] MEDS: PREGABALIN 75 MG CAP PO SCH ×2 (07:58→20:56)
[2017-10-03 09:03] LABS: HEMATOCRIT 37.8 % (42-52); HEMOGLOBIN 12.4 g/dL (14.0-18.0); MEAN CELL VOLUME 83.6 fL (80-100); MEAN CORPUSCULAR HEMOGLOBIN 27.4 pg (25-34); MEAN CORPUSCULAR HGB CONC 32.8 g/dl (32-36); MEAN PLATELET VOLUME 8.5 fL (7.4-10.4); PLATELET COUNT 214 K/uL (130-400); RED CELL DISTRIBUTION WIDTH CV 15.3 % (11.5-14.5); RED CELL DISTRIBUTION WIDTH SD 46.8 fL (36.4-46.3); WHITE BLOOD COUNT 8.91 K/uL (4.8-10.8)
[2017-10-03 09:06] LABS: CREATININE 0.73 mg/dl (0.60-1.40); POTASSIUM 3.7 mmol/L (3.5-5.1)
[2017-10-03] MEDS ORDERED: NURSING VERBAL MED ORDER ONE (09:15)
[2017-10-03] MEDS: LEVOTHYROXINE SODIUM INJ 44 MCG in SYRINGE 0 ML IV SCH (09:15)
[2017-10-03 10:03] VITALS: BP 167/89; PULSE 94; TEMP 36.8
[2017-10-03] MEDS: ONDANSETRON INJ 2 MG/ML 2 ML VIAL IV PRN (10:16)
[2017-10-03 16:05] VITALS: BP 118/72; PULSE 82; TEMP 36.8
[2017-10-03] MEDS: LEVOFLOXACIN 750MG / D5W IV SCH (16:25)
[2017-10-03] MEDS: ACETAMINOPHEN IV 650 MG in EMPTY BAG 0 ML IV PRN (17:42)
--- NOTE | 2017-10-03 19:08 | Progress Note ---
Medicine Progress Note Date & Time of Visit: October 03, 2017 at 19:08. Subjective Patient doing better, states he is hoping to have his diet advanced as he does not like the clear liquids. No overnight events noted. No N/V. Abdominal pain improved. No additional rectal bleeding. Objective Last 8 Hrs Date Time Temp Pulse Resp B/P (MAP) Pulse Ox O2 Delivery O2 Flow Rate FiO2 10/03/17 16:05 36.8 82 20 118/72 (87) Physical Exam: GENERAL: Patient is in no acute distress. HEENT: No acute trauma, normocephalic, mucous membranes moist, no nasal congestion, no scleral icterus. NECK: No stridor, trachea is midline. LUNGS: Clear to auscultation bilaterally, no wheeze, no rhonchi, breath sounds equal. HEART: Without murmurs gallops or rubs, regular rate and rhythm. ABDOMEN: Soft, nontender, bowel sounds positive EXTREMITIES: No cyanosis or edema, moving all 4 extremities without pain or difficulty, no signs for acute trauma. NEUROLOGIC: Oriented x 3, no acute motor or sensory deficits, no focal weakness. SKIN: No rash, no jaundice, no diaphoresis. Laboratory Results: Last 24 Hours Test 10/03/17 08:22 White Blood Count 8.91 K/uL Red Blood Count 4.52 M/uL Hemoglobin 12.4 g/dL Hematocrit 37.8 % Mean Corpuscular Volume 83.6 fL Mean Corpuscular Hemoglobin 27.4 pg Mean Corpuscular Hemoglobin Concent 32.8 g/dl RDW Standard Deviation 46.8 fL RDW Coefficient of Variation 15.3 % Platelet Count 214 K/uL Mean Platelet Volume 8.5 fL Sodium Level 137 mmol/L Potassium Level 3.7 mmol/L Chloride Level 108 mmol/L Carbon Dioxide Level 19 mmol/L Anion Gap 10.0 mmol/L Blood Urea Nitrogen 10 mg/dl Creatinine 0.73 mg/dl Est Creatinine Clear Calc Drug Dose 63.7 ml/min Estimated GFR () 106.7 Estimated GFR (Non- 92.0 BUN/Creatinine Ratio 13.5 Random Glucose 122 mg/dl Calcium Level 8.0 mg/dl Date/Time Source Procedure Growth Status 10/03/17 13:45 Stool Shiga Toxin Test Pending Received 10/03/17 13:45 Stool Stool Culture Pending Received Assessment & Plan GI BLEED: secondary to Ischemic colitis -bright red per rectum -GI consulted, colonoscopy showed diverticulosis and endoscopic findings consistent with ischemic colitis -H&H is stable -CT of the abdomen - nonspecific transverse colitis -on IV Protonix -on antibiotics, levaquin and flagyl CAP -CT of the abdomen - patchy densities at the LLL -continue Levaquin SINUS TACHYCARDIA: -intermittently -likely secondary to intravascular depletion RHEUMATOID ARTHRITIS -currently on solu-medrol and Plaquenil -switch back to prednisone when tolerating PO intake HYPOTHYROIDISM: -continue Synthroid Current Inpatient Medications: Current Inpatient Medications Medications (Trade) Dose Ordered Sig/Soumya Route Start Time Stop Time Status Last Admin Dose Admin Ondansetron HCl (Zofran Inj) 4 mg Q6H PRN IV 09/29/17 16:15 10/29/17 16:14 10/03/17 10:16 4 MG Acetaminophen 650 mg/Empty Bag 65 ml @ 260 mls/hr Q6H PRN IV 09/29/17 16:30 10/29/17 16:29 10/03/17 17:42 260 MLS/HR Levofloxacin (Consult) 1 ea UD PRN N/A 09/29/17 18:15 10/29/17 18:14 Pantoprazole Sodium 40 mg/ Syringe 10 ml @ 5 mls/min DAILY@ IV 09/29/17 21:00 10/29/17 20:59 10/03/17 07:54 5 MLS/MIN Levothyroxine Sodium 44 mcg/ Syringe 2.2 ml @ 2 mls/min DAILY@ IV 09/30/17 09:00 10/30/17 08:59 10/03/17 09:15 2 MLS/MIN Hydroxychloroquine Sulfate (Plaquenil Tab) 200 mg QPM PO 09/29/17 21:00 10/29/17 20:59 10/02/17 21:38 200 MG Pregabalin (Lyrica Cap) 75 mg BID PO 09/29/17 21:00 10/29/17 20:59 10/03/17 07:58 75 MG Tamsulosin HCl (Flomax Cap) 0.4 mg DAILY PO 09/30/17 09:00 10/30/17 08:59 10/03/17 07:55 0.4 MG Metronidazole (Consult) 1 ea UD PRN N/A 09/29/17 18:15 10/29/17 18:14 Metronidazole 500 mg/Prmx 100 ml @ 100 mls/hr Q8H IV 09/30/17 00:00 10/10/17 00:00 10/03/17 16:25 100 MLS/HR Albuterol/ Ipratropium (Duoneb) 3 ml Q4 PRN INH 09/30/17 08:00 10/30/17 07:59 Prednisone (PredniSONE TAB) 5 mg DAILY PO 10/03/17 09:00 11/02/17 08:59 10/03/17 09:14 5 MG Levofloxacin 750 mg/Prmx 150 ml @ 100 mls/hr Q24H IV 10/03/17 16:00 10/06/17 15:59 10/03/17 16:25 100 MLS/HR
[2017-10-03] MEDS: HYDROXYCHLOROQUINE SULFATE 200 MG TAB PO SCH (20:56)
[2017-10-03] MEDS ORDERED: TRAMADOL HCL 50 MG TAB PO STA (22:38)
[2017-10-04 00:26] VITALS: BP 103/62; PULSE 91; TEMP 36.6
[2017-10-04] MEDS: METRONIDAZOLE 500MG / NSS IV SCH ×3 (00:43→15:47)
[2017-10-04 07:24] LABS: HEMATOCRIT 36.9 % (42-52); HEMOGLOBIN 12.2 g/dL (14.0-18.0); MEAN CELL VOLUME 82.4 fL (80-100); MEAN CORPUSCULAR HEMOGLOBIN 27.2 pg (25-34); MEAN CORPUSCULAR HGB CONC 33.1 g/dl (32-36); PLATELET COUNT 201 K/uL (130-400); RED CELL DISTRIBUTION WIDTH CV 15.5 % (11.5-14.5); RED CELL DISTRIBUTION WIDTH SD 46.2 fL (36.4-46.3); WHITE BLOOD COUNT 9.31 K/uL (4.8-10.8)
[2017-10-04 08:19] VITALS: BP 110/68; PULSE 111; TEMP 36.7; O2SAT 94
[2017-10-04] MEDS: PANTOprazole INJ 40 MG in SYRINGE 0 ML IV SCH (08:19)
[2017-10-04] MEDS: ACETAMINOPHEN IV 650 MG in EMPTY BAG 0 ML IV PRN (08:19)
[2017-10-04] MEDS: TAMSULOSIN HCL 0.4 MG CAP PO SCH (08:20)
[2017-10-04] MEDS: PREGABALIN 75 MG CAP PO SCH (08:27)
[2017-10-04] MEDS: LEVOTHYROXINE SODIUM INJ 44 MCG in SYRINGE 0 ML IV SCH (08:54)
[2017-10-04 09:54] LABS: CREATININE 0.87 mg/dl (0.60-1.40); POTASSIUM 3.5 mmol/L (3.5-5.1)
[2017-10-04 16:14] VITALS: O2SAT 94
[2017-10-04 16:16] VITALS: BP 124/76; PULSE 95; TEMP 36.8; O2SAT 95
[2017-10-04] MEDS: LEVOFLOXACIN 750MG / D5W IV SCH (16:57)
[2017-10-04] MEDS ORDERED: METR-163 PO (16:59)
[2017-10-04] MEDS ORDERED: MISCCAP77 PO (16:59)
[2017-10-04] MEDS ORDERED: LEVO1TAB35 PO (16:59)
--- NOTE | 2017-10-04 17:06 | Discharge Instructions ---
Discharge Instructions Date of Service October 04, 2017. Admission Reason for Admission: Rectal Bleeding Discharge Discharge Diagnosis / Problem: Ischemic colitis, rectal bleeding Discharge Goals Goal(s): Therapeutic intervention Activity Recommendations Activity Limitations: resume your previous activity . Instructions / Follow-Up Instructions / Follow-Up Please see Dr. Rhoades on October 09 at 1:45 PM for hospital follow up Current Hospital Diet Patient's current hospital diet: Regular Diet Discharge Diet Recommended Diet: Low Fiber Diet (for 4 weeks), Low Lactose Diet (for 2 weeks) Procedures Procedures Performed: colonoscopy with biopsy Pending Studies Studies pending at discharge: yes List of pending studies: Biopsy results from colonoscopy Medical Emergencies . Who to Call and When: Medical Emergencies: If at any time you feel your situation is an emergency, please call 911 immediately. . Non-Emergent Contact Non-Emergency issues call your: Primary Care Provider, National Insurance Officer . . "Provider Documentation" section prepared by Carissa Blanton. .
[2017-10-04 17:19] VITALS: BP 124/76; PULSE 95; TEMP 36.8; O2SAT 95
--- NOTE | 2017-10-04 17:26 | Discharge Summary ---
Discharge Summary Date of Service October 04, 2017. Discharge Summary Admission Date: September 29, 2017 at 16:17 Discharge Date: October 04, 2017 Admission Information HPI (per Admitting provider): Patient is a 71-year-old male with past medical history of depression, rheumatoid arthritis, osteoporosis, gastroparesis, oral facial dyskinesia, moderate intellectual disabilities, GERD, hypothyroidism and other problems presents with history of intermittent rectal bleeding since yesterday. Patient is a poor historian. Most of the history is obtained from patient's ambulatory care coordinator and also from ER physician, old records. Patient noticed bright red blood per rectum associated with mild abdominal pain which is 3/10 intensity, sharp to dull, across the abdomen, non radiating, increases with movement and unrelated to food intake. He reports 2-4 BMs per days since yesterday. Never had colonoscopy as per patient and denies GI bleed in the past. His last Endoscopy was in 2014 which was normal. Takes buffered Aspirin (1-2 per day) for chronic pain. Denies being on any blood thinners or uses of NSAIDs. CT abd was suggestive of nonspecific transverse colitis and colonic diverticulosis. He is on chronic prednisone for RA. Rectal exam done by ED physician demonstrates red blood that is guaiac positive. Patient also reports chronic cough with intermittent clear expectoration since at least [address] showed Patchy densities at the base of the left lower lobe suggestive of Pneumonia. Denies any history of chest pain, SOB, pedal edema, hemoptysis, fever, chills, headache, nausea, vomiting, diarrhea, dysuria. Physical Exam (per Admitting): General Appearance: WD/WN, no apparent distress Head: normocephalic, atraumatic Eyes: normal inspection, PERRL, EOMI, sclerae normal ENT: normal ENT inspection, hearing grossly normal Neck: supple, trachea midline Respiratory/Chest: chest non-tender, lungs clear, no respiratory distress, no accessory muscle use, + decreased breath sounds Cardiovascular: regular rate, rhythm, no edema, no murmur Abdomen/GI: normal bowel sounds, soft, + tenderness (Predominantly LUQ) Back: normal inspection Extremities/Musculoskelatal: normal inspection, no pedal edema, + pertinent finding (Rheumatoid arthritic changes noted) Neurologic/Psych: line leader II-XII nml as tested, no motor/sensory deficits, alert , normal mood/affect, oriented x 3, + pertinent finding (Chronic dysarthria) Skin: normal color, warm/dry Hospital Course GI BLEED: secondary to Ischemic colitis -bright red per rectum -GI consulted, colonoscopy showed diverticulosis and endoscopic findings consistent with ischemic colitis -H&H is stable -CT of the abdomen - nonspecific transverse colitis -on IV Protonix -on antibiotics, levaquin and flagyl CAP -CT of the abdomen - patchy densities at the LLL -continue Levaquin SINUS TACHYCARDIA: -intermittently -likely secondary to intravascular depletion RHEUMATOID ARTHRITIS -currently on solu-medrol and Plaquenil -switch back to prednisone when tolerating PO intake HYPOTHYROIDISM: -continue Synthroid Total time spent on discharge = This includes examination of the patient, discharge planning, medication reconciliation, and communication with other providers.
[2017-10-04] MEDS ORDERED: METRONIDAZOLE 250 MG TAB PO SCH ×2 (17:30→21:00)
[2017-10-04] MEDS ORDERED: TRAMADOL HCL 50 MG TAB PO SCH (20:00)
[2017-10-05] MEDS ORDERED: LEVOTHYROXINE 88 MCG TAB PO SCH (06:30)
== END 2017-10-04 19:05 | disposition home health service (06) | DRG 393 ==
LOC: C.EDB 11:18 → C.2T 16:17 → UNDOADMIN 16:17 → EDBEDREQ 16:33 → ENRESERV 16:45 → C.4E 10-03 09:59
PROVIDERS: ADMIT Internal Medicine; ATTEND Internal Medicine
PROC: 0DBL8ZX Excision of Transverse Colon, Via Natural or Artificial Opening Endoscopic, Diagnostic (ICD-10-PCS; principal; 2017-10-02 11:00)
DX: K55.9 Vascular disorder of intestine, unspecified (principal); J18.9 Pneumonia, unspecified organism; K63.3 Ulcer of intestine; E03.9 Hypothyroidism, unspecified; F32.9 Major depressive disorder, single episode, unspecified; K21.9 Gastro-esophageal reflux disease without esophagitis; K31.84 Gastroparesis; F71 Moderate intellectual disabilities; G24.4 Idiopathic orofacial dystonia; M19.90 Unspecified osteoarthritis, unspecified site; Z96.649 Presence of unspecified artificial hip joint; Z88.8 Allergy status to other drugs, medicaments and biological substances; M06.9 Rheumatoid arthritis, unspecified; M81.0 Age-related osteoporosis without current pathological fracture; K57.30 Diverticulosis of large intestine without perforation or abscess without bleeding

== ENCOUNTER 2020-06-18 04:33 | Inpatient (IN) ==
[2020-06-18 05:26] LABS: Hematocrit (blood only) 40.4 % (42-52); Mean Corpuscular Hemoglobin 35.3 pg (25-34); Mean Corpuscular Hgb Conc 34.7 g/dL (32-36); Mean Corpuscular Volume 101.8 fL (80-100); Mean Platelet Volume 8.5 fL (7.4-10.4); Platelet Count 150 K/uL (130-400); RDW Coefficient of Variation 12.9 % (11.5-14.5); Red Blood Count 3.97 M/uL (4.7-6.1); White Blood Count 24.86 K/uL (4.8-10.8)
[2020-06-18] MEDS ORDERED: CEFEPIME 2,000 MG/20 ML VIAL IV STA (05:30)
[2020-06-18] MEDS ORDERED: VANCOMYCIN HCL 1,000 MG in SODIUM CHLORIDE 0.9% 500 ML IV ONE (05:30)
[2020-06-18] MEDS ORDERED: VANCOMYCIN CONSULT ACTIVE PRN (05:30)
[2020-06-18] MEDS ORDERED: SODIUM CHLORIDE 0.9% 1000ML 500 ML IV ONE (05:33)
[2020-06-18 05:43] LABS: Alanine Aminotransferase 22 U/L (12-78); Albumin Level 4.3 gm/dl (3.4-5.0); Aspartate Aminotransferase 27 U/L (15-37); BUN Creatinine Ratio 17.7 (10-20); Blood Urea Nitrogen 17 mg/dl (7-18); Calcium 9.2 mg/dl (8.5-10.1); Carbon Dioxide 27 mmol/L (21-32); Chloride 107 mmol/L (98-107); Creatinine Clr Calc Pharmacy 45.8 ml/min; Est GFR (African American) 87.5; Est GFR (Non-African American) 75.5; Glucose 96 mg/dl (70-99); Magnesium 2.2 mg/dl (1.8-2.4); Potassium 3.7 mmol/L (3.5-5.1); Sodium 139 mmol/L (136-145)
[2020-06-18 05:44] LABS: Basophils # (auto) 0.01 K/uL (0-0.2); Eosinophils # (auto) 0.03 K/uL (0-0.5); Eosinophils % (auto) 0.1 %; Immature Granulocytes # (auto) 0.08 K/uL (0.00-0.02); Immature Granulocytes % (auto) 0.3 %; Lymphocytes # (auto) 2.48 K/uL (1.2-3.4); Monocytes # (auto) 1.44 K/uL (0.11-0.59); Monocytes % (auto) 5.8 %; Neutrophils # (auto) 20.82 K/uL (1.4-6.5); Neutrophils % (auto) 83.8 %; RBC Morphology Unremarkable
[2020-06-18 05:48] LABS: Albumin Globulin Ratio 1.3 (0.9-2); Alkaline Phosphatase 57 U/L (45-117); Bilirubin,Total 0.8 mg/dl (0.2-1); Globulin 3.2 gm/dl (2.5-4.0); Total Protein 7.5 gm/dl (6.4-8.2); Troponin I < 0.015 ng/ml (0-0.045)
[2020-06-18] MEDS ORDERED: ACETAMINOPHEN 500 MG TAB PO STA (05:49)
--- NOTE | 2020-06-18 05:59 | Emergency Department Note ---
History of Present Illness General Chief complaint: Fall Stated complaint: WEAKNESS/FALL Time Seen by Provider: 06/18/20 04:49 Source: patient Mode of arrival: ambulatory Limitations: no limitations History of Present Illness Maximum Pain Intensity: 5 This patient is a 74-year-old male who presents to the emergency department via EMS from home for evaluation of weakness and fall. The patient states that his legs gave out on him and he fell. He injured his right knee during the fall. He complains of pain in the right knee. He does have a history of arthritis in the right knee and states that he has been told that the knee would need to be replaced. Patient reports increased weakness over the past few days. He states this is unusual for him. He does not have a history of frequent falls. Per EMS, the patient seemed to be short of breath and had a low O2 saturation on arrival, however after sitting the patient up his O2 sat returned to the 90s. Patient has a cough but states this is chronic for him. He is unsure if he struck his head during the fall. He denies any chest pain, shortness of breath, vomiting or diarrhea. Home Medications Medication Instructions Recorded Confirmed Type hydroxychloroquine 200 mg PO HS 04/18/18 06/18/20 History levothyroxine 88 mcg PO QAM 04/18/18 06/18/20 History magnesium oxide 400 mg PO QAM 04/18/18 06/18/20 History tamsulosin 0.4 mg PO HS 04/18/18 06/18/20 History omeprazole 40 mg PO QAM 06/05/18 06/18/20 History prednisone 5 mg PO QAM 06/05/18 06/18/20 History pregabalin [Lyrica] 75 mg PO HS 01/20/19 06/18/20 History tramadol 50 mg PO TID 01/20/19 06/18/20 History calcium citrate 200 mg PO QAM 06/18/20 06/18/20 History ferrous sulfate [iron] 325 mg PO QDL 06/18/20 06/18/20 History multivitamin 1 tab PO QAM 06/18/20 06/18/20 History Allergies Allergy/AdvReac Type Severity Reaction Status Date / Time metoclopramide AdvReac Intermediate RAPID HR Verified 06/18/20 05:02 Past Med/Surg History Medical History (Updated 06/18/20 @ 07:51 by Brittani Herrera PA-C) Acute blood loss anemia Acute cholecystitis Altered mental status Back pain Bilateral pneumonia BPH (benign prostatic hyperplasia) Bronchitis Chest pain (06/10/13) CHF (congestive heart failure) Closed olecranon fracture Compression fracture of thoracic spine, non-traumatic Dehydration Dislocation of radial head Fall Fracture of humeral head, left, closed Fracture of pubis without disruption of pelvic ring GI bleed Humeral fracture Hypothyroidism Knee pain Rectal bleeding Respiratory failure Rheumatoid arthritis Rib fracture Right shoulder pain Sepsis (06/10/13) SIRS (systemic inflammatory response syndrome) Tachycardia Tinea corporis (12/13/12) Vitamin D deficiency Vomiting Surgical History History of cholecystectomy Status post appendectomy Family History Other Family history non-contributory Social History Smoking Status: Never smoker Hx Alcohol Use: No Hx Substance Use: No Preferred Language: Malian Communication Ability: Effective Visual Impairment: No Limitations Music Historian Required: No Beliefs That Will Affect Care: None marital status: Life Partner Current Living Situation: Spouse current occupational status: disabled Feels Safe at Home: Yes Assistive Devices: Walker Review of Systems A total of 10 systems reviewed and were otherwise negative Physical Exam Vital Signs Vital Signs - 24 hr 06/18/20 04:46 06/18/20 04:50 06/18/20 05:00 Temperature 37.3 C Temperature Source Oral Pulse Rate 118 H 124 H 120 H Pulse Rate from SpO2 Sensor 125 H 122 H Respiratory Rate 24 20 35 H Respiratory Depth Normal Blood Pressure 139/73 Blood Pressure Mean 95 Pulse Oximetry 92 90 92 Oxygen Delivery Method Room Air Sepsis Recent Fever Within 48 Hours No Sepsis New/Unexplained Change in Mental Status N/A Sepsis Action Taken by Nursing No Action Required 06/18/20 05:01 06/18/20 05:05 06/18/20 05:39 Temperature Temperature Source Pulse Rate 121 H 114 H Pulse Rate from SpO2 Sensor Respiratory Rate 36 H 30 H Respiratory Depth Blood Pressure 131/77 Blood Pressure Mean 95 Pulse Oximetry 92 Oxygen Delivery Method Room Air Sepsis Recent Fever Within 48 Hours Sepsis New/Unexplained Change in Mental Status Sepsis Action Taken by Nursing 06/18/20 05:40 06/18/20 05:48 06/18/20 05:50 Temperature 37.8 C H Temperature Source Oral Pulse Rate 112 H 117 H Pulse Rate from SpO2 Sensor Respiratory Rate 35 H 29 H Respiratory Depth Blood Pressure Blood Pressure Mean Pulse Oximetry Oxygen Delivery Method Sepsis Recent Fever Within 48 Hours Sepsis New/Unexplained Change in Mental Status Sepsis Action Taken by Nursing 06/18/20 06:18 06/18/20 06:30 06/18/20 06:31 Temperature Temperature Source Pulse Rate 111 H 97 H 97 H Pulse Rate from SpO2 Sensor 113 H Respiratory Rate 28 H 31 H 21 Respiratory Depth Blood Pressure 145/64 H 141/39 H Blood Pressure Mean 91 73 Pulse Oximetry 93 Oxygen Delivery Method Room Air Sepsis Recent Fever Within 48 Hours Sepsis New/Unexplained Change in Mental Status Sepsis Action Taken by Nursing 06/18/20 07:00 06/18/20 07:01 Temperature Temperature Source Pulse Rate 101 H 99 H Pulse Rate from SpO2 Sensor 95 H 98 H Respiratory Rate 24 20 Respiratory Depth Blood Pressure 111/61 Blood Pressure Mean 77 Pulse Oximetry 90 Oxygen Delivery Method Sepsis Recent Fever Within 48 Hours Sepsis New/Unexplained Change in Mental Status Sepsis Action Taken by Nursing VITALS: Vitals are noted on the nurse's note and reviewed by myself. Vital signs stable. GENERAL: This is a 74-year-old male, in no acute distress, well-developed well- nourished. SKIN: The skin was without rashes. EARS: External auditory canals clear, tympanic membranes pearly hanson without erythema or effusion bilaterally. EYES: Pupils equal round and reactive to light and accommodation. NOSE: Patent, turbinates without inflammation or discharge. MOUTH: Mucous membranes moist. Tonsils are not enlarged. Pharynx without erythema or exudate. NECK: Supple without nuchal rigidity. No lymphadenopathy. HEART: Regular rate and rhythm without murmurs gallops or rubs. LUNGS: Patient is tachypneic. Crackles in the right lung base, mild wheezing throughout. ABDOMEN: Positive bowel sounds x 4. Soft, nontender to palpation. NEURO: Patient was alert and oriented to person place and time. Course Consultations Consultation #1: [facility] hospitalist Administered Medications Vancomycin HCl 1,000 mg/ (Sodium Chloride) 520 mls @ 200 mls/hr IV NOW ONE Stop: 06/18/20 08:05 Last Admin: 06/18/20 06:18 Dose: 200 mls/hr Documented by: [id number] Discontinued Medications Acetaminophen (Acetaminophen 500 Mg Tab) 1,000 mg PO NOW STA Stop: 06/18/20 05:50 Last Admin: 06/18/20 06:19 Dose: 1,000 mg Documented by: [id number] Cefepime HCl (Maxipime) 2,000 mg in 20 mls @ 5 mls/min IV NOW STA Stop: 06/18/20 05:33 Last Admin: 06/18/20 06:19 Dose: 5 mls/min Documented by: [id number] Sodium Chloride (Nss 1000ml) 500 mls @ 999 mls/hr IV .Q31M ONE Stop: 06/18/20 06:03 Last Infusion: 06/18/20 06:50 Dose: 0 mls/hr Documented by: [id number] Admin: 06/18/20 06:18 Dose: 999 mls/hr Documented by: [id number] Medical Decision Making Differential Diagnosis Infection, dehydration, metabolic abnormality, hypo/hyperglycemia, electrolyte disturbance, anemia, hypoxia, cardiac sources, intracerebral event, toxicologic, neurologic, as well as other pathologies. Home Medications Current Medication List: was personally reviewed by me Laboratory Data Attestation: I reviewed the patient's lab results. Result diagrams: 06/18/20 05:08 06/18/20 05:08 Lab Results 06/18/20 06/18/20 06/18/20 Range/Units 05:08 05:08 05:42 WBC 24.86 H (4.8-10.8) K/uL RBC 3.97 L (4.7-6.1) M/uL Hgb 14.0 (14.0-18.0) g/dL Hct 40.4 L (42-52) % MCV 101.8 H (80-100) fL MCH 35.3 H (25-34) pg MCHC 34.7 (32-36) g/dL RDW Std Deviation 47.0 H (36.4-46.3) fL RDW Coeff of Airam 12.9 (11.5-14.5) % Plt Count 150 (130-400) K/uL MPV 8.5 (7.4-10.4) fL Immature Gran % (Auto) 0.3 % Neut % (Auto) 83.8 % Lymph % (Auto) 10.0 % [place] % (Auto) 5.8 % Eos % (Auto) 0.1 % Baso % (Auto) 0.0 % Neut # (Auto) 20.82 H (1.4-6.5) K/uL Lymph # (Auto) 2.48 (1.2-3.4) K/uL [place] # (Auto) 1.44 H (0.11-0.59) K/uL Eos # (Auto) 0.03 (0-0.5) K/uL Baso # (Auto) 0.01 (0-0.2) K/uL Immature Gran # (Auto) 0.08 H (0.00-0.02) K/uL RBC Morphology Unremarkable Sodium 139 (136-145) mmol/L Potassium 3.7 (3.5-5.1) mmol/L Chloride 107 (98-107) mmol/L Carbon Dioxide 27 (21-32) mmol/L Anion Gap 5.0 (3-11) BUN 17 (7-18) mg/dl Creatinine 0.97 (0.6-1.4) mg/dl Est Cr Clr Drug Dosing 45.8 ml/min Est GFR ( Amer) 87.5 Est GFR (Non-Af Amer) 75.5 BUN/Creatinine Ratio 17.7 (10-20) Glucose 96 (70-99) mg/dl Lactate (0.4-2.0) mmol/L Calcium 9.2 (8.5-10.1) mg/dl Magnesium 2.2 (1.8-2.4) mg/dl Total Bilirubin 0.8 (0.2-1) mg/dl AST 27 (15-37) U/L ALT 22 (12-78) U/L Alkaline Phosphatase 57 (45-117) U/L Troponin I < 0.015 (0-0.045) ng/ml Total Protein 7.5 (6.4-8.2) gm/dl Albumin 4.3 (3.4-5.0) gm/dl Globulin 3.2 (2.5-4.0) gm/dl Albumin/Globulin Ratio 1.3 (0.9-2) COVID-19 Eval Order CovFluRsv at [facility] SARS-CoV-2 (PCR) (Negative) Influenza Type A (PCR) (Neg) Influenza Type B (PCR) (Neg) RSV (RT-PCR) (Neg) 06/18/20 06/18/20 Range/Units 05:42 05:56 WBC (4.8-10.8) K/uL RBC (4.7-6.1) M/uL Hgb (14.0-18.0) g/dL Hct (42-52) % MCV (80-100) fL MCH (25-34) pg MCHC (32-36) g/dL RDW Std Deviation (36.4-46.3) fL RDW Coeff of Airam (11.5-14.5) % Plt Count (130-400) K/uL MPV (7.4-10.4) fL Immature Gran % (Auto) % Neut % (Auto) % Lymph % (Auto) % [place] % (Auto) % Eos % (Auto) % Baso % (Auto) % Neut # (Auto) (1.4-6.5) K/uL Lymph # (Auto) (1.2-3.4) K/uL [place] # (Auto) (0.11-0.59) K/uL Eos # (Auto) (0-0.5) K/uL Baso # (Auto) (0-0.2) K/uL Immature Gran # (Auto) (0.00-0.02) K/uL RBC Morphology Sodium (136-145) mmol/L Potassium (3.5-5.1) mmol/L Chloride (98-107) mmol/L Carbon Dioxide (21-32) mmol/L Anion Gap (3-11) BUN (7-18) mg/dl Creatinine (0.6-1.4) mg/dl Est Cr Clr Drug Dosing ml/min Est GFR ( Amer) Est GFR (Non-Af Amer) BUN/Creatinine Ratio (10-20) Glucose (70-99) mg/dl Lactate 1.7 (0.4-2.0) mmol/L Calcium (8.5-10.1) mg/dl Magnesium (1.8-2.4) mg/dl Total Bilirubin (0.2-1) mg/dl AST (15-37) U/L ALT (12-78) U/L Alkaline Phosphatase (45-117) U/L Troponin I (0-0.045) ng/ml Total Protein (6.4-8.2) gm/dl Albumin (3.4-5.0) gm/dl Globulin (2.5-4.0) gm/dl Albumin/Globulin Ratio (0.9-2) COVID-19 Eval Order SARS-CoV-2 (PCR) NEGATIVE (Negative) Influenza Type A (PCR) Negative (Neg) Influenza Type B (PCR) Negative (Neg) RSV (RT-PCR) Negative (Neg) Imaging Data Attestation: I personally reviewed and interpreted this imaging study as follows: My Impression: CHEST 1 VIEW: Right lower lobe pneumonia RIGHT KNEE: Severe arthritis, no acute fracture. Radiologist's Impression: CT HEAD: No ICH, mass effect or edema. No skull fracture. Dysmorphic nasal bones are stable from the examination 04/18/2018. Underlying deep white matter hypodense changes are similar to the previous examination without significant alteration in appearance. Radiologist: Kyree Clancy MD ECG Data Attestation: I personally reviewed and interpreted this ECG as follows: Indication: + weakness Rate (beats per minute): 114 Rhythm: + sinus tachycardia ECG Intervals/blocks: + Normal QRS ECG Findings: + Q waves Change: no significant change MDM Narrative Continuous threat monitoring analyst: Order was placed for continuous threat monitoring analyst. Patient was placed on the threat monitoring analyst. Patient was noted to be in sinus tachycardia at an initial rate of 120 bpm. The patient is a 74-year-old male who presents today for evaluation of weakness and fall. Patient has been generally weak for the past few days. Was found to have a low-grade fever and tachycardia on initial exam. He is tachypneic but not complaining of any shortness of breath. The above work-up was performed. Patient found to have a leukocytosis of 24,000, lactate was not elevated and no concerning electrolyte abnormalities. Kidney function within normal limits. Troponin within normal limits. Chest x-ray shows a right lower lobe pneumonia. Patient given IV cefepime and vancomycin. He was given a 500 mL bolus. He did not receive a full 30 mL/kg given history of CHF and concern for fluid overload. Additionally, patient had a normal blood pressure and heart rate responded well to the initial small bolus. Impression & Plan Sepsis, Pneumonia, Leukocytosis, Weakness Discharge Plan Visit Data Chief Complaint: Fall Stated Complaint: WEAKNESS/FALL ED Provider: Christiano Leos ED Midlevel Provider: Brittani Herrera Discharge Problem: Sepsis, Pneumonia, Leukocytosis, Weakness Forms Stand Alone Forms: My [facility] Prescriptions Prescriptions: No Action levothyroxine 88 mcg tablet 88 mcg PO QAM RF: 0 magnesium oxide 400 mg (241.3 mg magnesium) tablet 400 mg PO QAM RF: 0 tamsulosin 0.4 mg capsule 0.4 mg PO HS RF: 0 hydroxychloroquine 200 mg tablet 200 mg PO HS RF: 0 prednisone 5 mg tablet 5 mg PO QAM RF: 0 omeprazole 20 mg capsule,delayed release(DR/EC) 40 mg PO QAM RF: 0 tramadol 50 mg tablet 50 mg PO TID RF: 0 pregabalin [Lyrica] 75 mg capsule 75 mg PO HS RF: 0 multivitamin Tablet 1 tab PO QAM RF: 0 ferrous sulfate [iron] 325 mg (65 mg iron) Tablet 325 mg PO QDL RF: 0 calcium citrate 200 mg (950 mg) Tablet 200 mg PO QAM RF: 0 Referrals Referrals: Suleiman Rhoades DO [Primary Care Provider] - Discharge Problem: Sepsis Qualifiers: Sepsis type: sepsis due to unspecified organism Sepsis acute organ dysfunction status: without acute organ dysfunction Qualified Code(s): A41.9 - Sepsis, unspecified organism Pneumonia Qualifiers: Pneumonia type: due to unspecified organism Laterality: right Lung location: lower lobe of lung Qualified Code(s): J18.9 - Pneumonia, unspecified organism
--- NOTE | 2020-06-18 06:04 | Emergency Department Note ---
ED Visit Note Physician Evaluation Note: I have personally evaluated and examined this patient. I agree with assessment and plan of Brittani ALEXANDRA. Patient with weakness and fall at home. Found to be septic with RLL infiltrate. Resus in process and he looks quite well on examination happily laughing nursing. He has history CHF thus will hold off on 30ml/kg IV fluids and use small boluses as to avoid fluid overload. Christiano Leos MD : Sepsis Qualifiers: Sepsis type: sepsis due to unspecified organism Sepsis acute organ dysfunction status: without acute organ dysfunction Qualified Code(s): A41.9 - Sepsis, unspecified organism Pneumonia Qualifiers: Pneumonia type: due to unspecified organism Laterality: right Lung location: lower lobe of lung Qualified Code(s): J18.9 - Pneumonia, unspecified organism
[2020-06-18 06:26] LABS: Influenza A virus by PCR Negative (Neg); Influenza B virus by PCR Negative (Neg); RSV by PCR Negative (Neg); SARS CoV2 RNA(COVID-19) InHosp NEGATIVE (Negative)
--- NOTE | 2020-06-18 07:18 | CT Scan Report ---
CT OF THE HEAD WITHOUT CONTRAST CLINICAL HISTORY: weakness COMPARISON STUDY: Head CT April 18, 2018. CT DOSE: 614.27 mGy.cm TECHNIQUE: Helical axial images of the head were obtained without IV contrast. Automated exposure con trol was utilized for the study. A dose lowering technique was utilized adhering to the principles o f ALARA. FINDINGS: No acute intracranial hemorrhage, midline shift or mass effect is present. Ventricular syst em is stable. Basilar cisterns are patent. There are no extra-axial collections. Extensive white andres er hypodensities are similar to prior exam. There is bilateral basal ganglia calcification. There are no findings to suggest acute dural sinus thrombosis or acute territorial infarct. Old fractures of t he right nasal bone and medial wall of the right orbit are noted. There is no calvarial fracture. IMPRESSION: 1. No acute intracranial findings. No significant change in appearance of the brain. 2. No calvarial fracture. ACT 112: Negative or not required by law. Electronically signed by: Dominguez Wells M.D. 06/18/2020 7:16 AM
--- NOTE | 2020-06-18 08:12 | XRay Report ---
XR knee RT 3V CLINICAL HISTORY: RIGHT knee injury COMPARISON STUDY: None. FINDINGS: There is severe cartilage space narrowing with [id number]-fr-yacm articulation within the lateral patellofemoral compartment. There is mild lateral patellar subluxation. The bones are osteopenic. Ba silar calcifications are noted. Moderate knee effusion. Dense 2.7 cm calcification adjacent to the an terior knee joint. There is also moderate cartilage space narrowing within the femorotibial compartme nts with small marginal osteophytes. Chondrocalcinosis is noted. No fracture or dislocation. IMPRESSION: 1. No fracture or dislocation within the right knee. 2. Moderate to severe tricompartmental osteoarthritis. 3. Moderate knee effusion. ACT 112: Negative or not required by law. Electronically signed by: Dale Agarwal M.D. 06/18/2020 8:10 AM
--- NOTE | 2020-06-18 08:19 | XRay Report ---
XR chest 1V portable HISTORY: cough, weakness COMPARISON: Chest 01/20/2019. FINDINGS: Right base airspace opacities are new compared the prior study. Old, healed bilateral rib f ractures as well as old, healed left clavicle and left humeral head fractures. No pneumothorax. No pl eural effusions. The heart remains top normal in size. Prior cholecystectomy. IMPRESSION: There is new right basilar airspace opacity likely representing a pneumonia. Recommend follow-up to e yohan bhakta. ACT 112: Negative or not required by law. Electronically signed by: Dale Agarwal M.D. 06/18/2020 8:18 AM
[2020-06-18] MEDS ORDERED: XOPENEX/ATROVENT 1.25mg/0.5MG NEB COMBO NEB PRN (08:47)
[2020-06-18] MEDS ORDERED: IPRATROPIUM BROMIDE NEB SOLN 0.02% 2.5 ML VIAL INH PRN (08:47)
[2020-06-18] MEDS ORDERED: SODIUM CHLORIDE 0.9% 1000ML 1,000 ML IV SCH (08:47)
[2020-06-18] MEDS ORDERED: NITROGLYCERIN SL 0.4 MG/TAB TAB SL PRN (08:47)
[2020-06-18] MEDS ORDERED: LEVALBUTEROL 1.25MG/0.5ML NEB INH PRN (08:47)
[2020-06-18] MEDS ORDERED: CEFEPIME CONSULT ACTIVE PRN (08:55)
--- NOTE | 2020-06-18 09:44 | History and Physical Report ---
DATE OF ADMISSION: 06/18/2020 CHIEF COMPLAINT: Fall and weakness. HISTORY OF PRESENT ILLNESS: This is a 74-year-old male with past medical history significant for occult hypothyroidism, chronic bronchitis, gastroparesis, GERD, osteoporosis, history of orofacial dyskinesia, difficult to understand ,rheumatoid arthritis, history of depression, who lives with his , who was brought in because of fall and weakness. The patient says he was trying to get into his bed and legs felt weak and he fell down. Somewhat difficult to understand the patient because he does not have teeth and he also has orofacial dyskinesia. Denies any fevers. He says he has chronic cough and brings some yellowish phlegm. Denies any chest pain. Denies any shortness of breath or dizziness. Has some headache now. He says his appetite is okay. No abdominal pain, seems to have normal bowel and bladder movements. Complains of pain in his right knee, which seems to be chronic. He says they are not planning for surgery on that knee. He was tachycardic, had a temp spike in the ER, saturating 93% on room air. His white count is 24,000. Chest x-ray, right lower lobe pneumonia. His COVID PCR came back negative, flu and RSV negative. ALLERGIES: METOCLOPRAMIDE. PAST MEDICAL HISTORY: As mentioned above. PAST SURGICAL HISTORY: EGD with biopsy, laparoscopic cholecystectomy, appendectomy, total hip replacement, colonoscopies. MEDICATIONS: The patient is on calcium citrate 200 mg p.o. a.m., ferrous sulfate 325 mg p.o. daily, hydroxychloroquine 200 mg p.o. at bedtime, levothyroxine 88 mcg p.o. a.m., magnesium oxide 400 mg p.o. a.m., multivitamin 1 tablet p.o. a.m., omeprazole 40 mg p.o. a.m., prednisone 5 mg p.o. a.m., Lyrica 75 mg at bedtime, Flomax 0.4 mg p.o. at bedtime, tramadol 50 mg p.o. t.i.d. FAMILY HISTORY: In file. SOCIAL HISTORY: and lives with his . No smoking, no alcohol, no drug use. REVIEW OF SYMPTOMS: As per HPI. Rest of the systems negative. PHYSICAL EXAMINATION: GENERAL: The patient is of moderate build, not in acute distress. VITAL SIGNS: Temperature 37.8, pulse 111, respiratory rate 20s, blood pressure 145/64, oxygen 93% on room air. HEENT: Pupils equal, round, reactive to light. Oral mucosa somewhat dry. NECK: No neck masses seen. CARDIOVASCULAR: S1, S2 heard, regular. Tachycardia. No murmurs. RESPIRATORY SYSTEM: Normal AP diameter. Mild bibasilar crackles. Diminished breath sounds. No wheezing. ABDOMEN: Soft, bowel sounds present, nontender. No distention. CENTRAL NERVOUS SYSTEM: Alert and awake. Obeys simple commands. Moves extremities. EXTREMITIES: No edema, no erythema seen. Right knee is slightly tender on palpation. LABORATORY DATA: WBC 24.8, hemoglobin 14, hematocrit 40.4, platelets 150. Sodium 139, potassium 3.7, chloride 107, bicarbonate 27, BUN 1017, creatinine 0.9, serum glucose 96, lactate 1.7, calcium 9.2, magnesium 2.2, total bilirubin 0.8, AST 27, ALT 22, alkaline phosphatase 57. Troponin I less than 0.015. SARS-CoV-2 PCR negative. Influenza A and B PCR negative, RSV PCR negative. IMAGING DATA: Chest x-ray, right lower lobe pneumonia. CT of head results pending. Knee x-ray results pending. EKG: Sinus tachycardia, rate of 114, no acute ST changes seen. ASSESSMENT AND PLAN: This is a 74-year-old male who presents with fall and found to have right lower lobe pneumonia. 1. Fall and weakness at home, mostly secondary to right lower lobe pneumonia. SARS-CoV-2, influenza and PCR negative. Er empirically started on vancomycin and cefepime which will be continued and we will also add doxycycline. Follow the cultures. If MRSA swab is negative, we will stop the vancomycin. We will continue with IV fluids normal saline@ 125 mL per hour. Follow the cultures. Follow the response. Placed on nebs p.r.n. Lactate is normal. 2. Possible sepsis . Meets criteria for sepsis with tachycardia, fever, elevated white count and pneumonia, antibiotics as above. We will follow the cultures. 3. History of rheumatoid arthritis, we will hold his hydroxychloroquine and p.o. prednisone. Place him on stress dose steroids with IV Solu-Medrol 20 b.i.d. and taper back quickly to prednisone 5 mg p.o. daily, when stable. 4. History of benign prostatic hypertrophy. Continue Flomax. 5. History of arthritis on right knee, follow the x-ray, has tenderness on palpation. 6. Chronic bronchitis. We will place him on nebs p.r.n. 7. History of oral facial dyskinesia, history of gastroparesis, allergic to METOCLOPRAMIDE, somewhat difficult to understand. We will monitor. 8. Hypothyroidism. Continue Synthroid. 9. Deep venous thrombosis prophylaxis, Lovenox. DISPOSITION: Closely monitor in the med tele. PT and OT prior to discharge. Social service to help with discharge planning. TANGELA
[2020-06-18] MEDS: PANTOprazole 40 MG TAB PO SCH (09:57)
[2020-06-18] MEDS: ENOXAPARIN INJ 40 MG/0.4 ML SYR SQ SCH (09:57)
[2020-06-18] MEDS: MULTIVITAMIN TAB PO SCH (09:57)
[2020-06-18] MEDS: MAGNESIUM OXIDE 400 MG TAB PO SCH (09:57)
[2020-06-18] MEDS: CALCIUM CITRATE 950 MG TAB PO SCH (09:57)
[2020-06-18] MEDS: LEVOTHYROXINE SODIUM 88 MCG TABLET PO SCH (09:58)
[2020-06-18] MEDS ORDERED: methylPREDNISolone 40 MG in SYRINGE 0 ML IV SCH (10:00)
[2020-06-18] MEDS ORDERED: DOXYCYCLINE HYCLATE 100 MG in DEXTROSE 5% 100 ML IV SCH (10:00)
[2020-06-18] MEDS: traMADol HCL 50 MG TABLET PO SCH ×2 (10:01→15:50)
--- NOTE | 2020-06-18 10:19 | Pharmacy Report ---
Pharmacy Abx Dose Short Note - Date of Service June 18, 2020 - Assessment & Plan Assessment 74 year old M admitted secondary to fall and weakness * Started on Vancomycin + Cefepime in ED (both pharmacy consults). Doxycycline added upon transfer to floor. * Febrile at 100oF upon admission. Leukocytosis of 25,000. SCr 0.97. Lactate not elevated. * Flu, COVID, and RSV all negative. Blood cultures pending. MRSA nasal swab not yet collected. * Chest XR showed right basilar airspace opacity suggestive of pneumonia Plan Vancomycin * Patient meets criteria for vancomycin AUC dosing nomogram * AUC/MARIA G is the preferred PK/PD target for vancomycin * Target AUC/MARIA G = 400-600 * AUC guided dosing is effective and associated with decreased risk of nephrotoxicity * Trough will be utilized to ensure AUC/MARIA G = 400-600. Goal trough of 15 mcg/mL. Ordered for 06/20/20. Cefepime * 2 g IV every 24 hours based on current renal function Pharmacy will continue to follow and will adjust dose/frequency as necessary. Thank you.
[2020-06-18] MEDS: FERROUS SULFATE 325 MG TAB PO SCH (12:06)
[2020-06-18 12:30] LABS: Appearance Urine Clear (Clear); Bilirubin Urine Negative (Negative); Blood Urine Negative (Negative); Cast Urine Automated 0 /lpf (0-5); Color Urine Yellow; Glucose Urine UA Negative (Negative); Ketones Urine Negative (Negative); Leukocyte Esterase Urine Trace (Negative); Nitrite Urine Positive (Negative); Protein Urine Negative (Negative); RBC Urine Automated 0-4 /hpf (0-4); Specific Gravity Urine 1.017 (1.000-1.030); Urobilinogen Urine Negative (Negative)
--- NOTE | 2020-06-18 13:35 | Electrocardiogram Report ---
Test Reason : Blood Pressure : / mmHG Vent. Rate : 114 BPM Atrial Rate : 114 BPM P-R Int : 146 ms QRS Dur : 082 ms QT Int : 340 ms P-R-T Axes : 038 -01 042 degrees QTc Int : 468 ms Poor data quality, interpretation may be adversely affected Sinus tachycardia Septal infarct (cited on or before 18-JUN-2020) Abnormal ECG When compared with ECG of 20-JAN-2019 14:12, Questionable change in initial forces of Septal leads Confirmed by Krzysztof Mccormick ([id number]) on 06/18/2020 1:35:26 PM Referred By: REFERRED SELF Confirmed By:Krzysztof Mccormick
[2020-06-18 13:43] LABS: Bacteria Urine Automated 3+ (Negative)
[2020-06-18] MEDS ORDERED: VANCOMYCIN HCL 500 MG in SODIUM CHLORIDE 0.9% 250 ML IV SCH (18:00)
--- NOTE | 2020-06-18 19:42 | Communication Note ---
Date of Service: June 18, 2020 admitted earlier today : with weakness and fall His white count is 24,000. Chest x-ray, right lower lobe pneumonia. COVID PCR negative, flu and RSV negative. sepsis : met criteria : admitted with fever , tachycardia , leukocytosis , source of infection rt lower lobe pneumonia cont on broad spectrum abx aspiration precaution speech eval for possible aspiration ( rt lower lobe pneumonia ) pts vitals been stable , with normal sinus rhythm, no tachyarrhythmia noted D/c joyce Thompson MD
[2020-06-18] MEDS: TAMSULOSIN HCL 0.4 MG CAP PO SCH (20:39)
[2020-06-18] MEDS: PREGABALIN 75 MG CAP PO SCH (20:39)
[2020-06-19] MEDS ORDERED: VANCOMYCIN CONSULT ACTIVE PRN (05:37)
[2020-06-19] MEDS ORDERED: VANCOMYCIN HCL 1,000 MG in SODIUM CHLORIDE 0.9% 250 ML IV ONE (06:00)
[2020-06-19] MEDS ORDERED: CEFEPIME 2,000 MG in SYRINGE 0 ML IV SCH (06:00)
[2020-06-19 06:30] LABS: Calcium 8.5 mg/dl (8.5-10.1); Creatinine Clr Calc Pharmacy 63.5 ml/min; Est GFR (African American) 106.2; Est GFR (Non-African American) 91.7; Magnesium 2.2 mg/dl (1.8-2.4); Potassium 3.7 mmol/L (3.5-5.1)
[2020-06-19 06:32] LABS: Eosinophils # (auto) 0.01 K/uL (0-0.5); Eosinophils % (auto) 0.1 %; Hematocrit (blood only) 32.4 % (42-52); Hemoglobin 11.2 g/dL (14.0-18.0); Immature Granulocytes # (auto) 0.02 K/uL (0.00-0.02); Immature Granulocytes % (auto) 0.2 %; Lymphocytes # (auto) 1.31 K/uL (1.2-3.4); Lymphocytes % (auto) 10.4 %; Mean Corpuscular Hemoglobin 34.7 pg (25-34); Mean Corpuscular Hgb Conc 34.6 g/dL (32-36); Mean Corpuscular Volume 100.3 fL (80-100); Mean Platelet Volume 8.4 fL (7.4-10.4); Monocytes # (auto) 0.98 K/uL (0.11-0.59); Monocytes % (auto) 7.8 %; Neutrophils # (auto) 10.29 K/uL (1.4-6.5); Neutrophils % (auto) 81.5 %; Platelet Count 152 K/uL (130-400); RDW Coefficient of Variation 12.6 % (11.5-14.5); Red Blood Count 3.23 M/uL (4.7-6.1); White Blood Count 12.61 K/uL (4.8-10.8)
[2020-06-19] MEDS: ACETAMINOPHEN 325 MG TAB PO PRN ×2 (06:37→20:31)
[2020-06-19] MEDS: LEVOTHYROXINE SODIUM 88 MCG TABLET PO SCH (06:37)
[2020-06-19] MEDS: FERROUS SULFATE 325 MG TAB PO SCH (08:00)
[2020-06-19] MEDS: MULTIVITAMIN TAB PO SCH (08:00)
[2020-06-19] MEDS: ENOXAPARIN INJ 40 MG/0.4 ML SYR SQ SCH (08:00)
[2020-06-19] MEDS: MAGNESIUM OXIDE 400 MG TAB PO SCH (08:00)
[2020-06-19] MEDS: CALCIUM CITRATE 950 MG TAB PO SCH (08:00)
[2020-06-19] MEDS: PANTOprazole 40 MG TAB PO SCH (08:00)
[2020-06-19] MEDS: predniSONE 5 MG TAB PO SCH (08:00)
--- NOTE | 2020-06-19 10:13 | Communication Note ---
Date of Service: June 19, 2020 Pts on currenty admitted in room 250/1 with Rt MCA infraction , left hemiplegia , severe dysphagia , unable to handle secretion pt is 89 yo DNR/DNI plan to return home on hospice if remains stable on sunday on comfort care now . Mr Brown inquired about his yesterday , wants to visit her today updated regarding 's poor prognosis /severe stroke /hospice status pt has mid MR /but appears to understand the gravity of the situation when asked if he would like to have his moved into same room with him he emphatically replies : Yes" plan is to have pt visit his today morning , if pt appears able to accept his current situation , his can be moved to same room If Mr Brown gets upset , overwhelmed with illness , it will be prudent not to keep both of them in same room ( as 's condition may decline rapidly in next 1-2 ) and allow periodic visit . plan of care updated to Nursing . Connie Thompson MD Plan updated to
[2020-06-19] MEDS: CEFEPIME 2,000 MG in SYRINGE 0 ML IV SCH (18:10)
--- NOTE | 2020-06-19 19:55 | Hospitalist Progress Note ---
Date of Service June 19, 2020 Assessment & Plan (1) Pneumonia: admitted with community acquired pneumonia on IV Cefepime clinically improved will deescalate Abx in next 24 hrs Leukocytosis: due to above count improved from 24 k -12 K follow CBC Positive blood culture : one bottle + growth gram positive cocci possible contaminated sample repeat Blood culture ordered Disposition : expected to be discharged home on Sunday with Po Abx if continues to well clinically Admission and Anticipated Discharge Date Admission Date: June 18, 2020 Subjective Follow up visit for pneumonia : pt seen in room 250 , moved to be with his -who is on comfort care /hospice form acute CVA awake and alert , sitting up on chair feels much better than yesterday , in better spirit -as able to be with his pt has speech impairment , cerebral palsy no complain of cough or SOB , no fever or chills Review of Systems Review of Systems: All systems reviewed & are unremarkable except as noted in Subjective Physical Exam Constitutional: WD/WN, vitals as above Eyes: PERRL, conjunctivae normal, anicteric sclerae ENMT: external ear and nose normal, oropharynx normal Neck: trachea midline, no thyromegaly Respiratory: normal respiratory effort; no cough Auscultation: + diminished lung sounds Cardiovascular: RRR, no murmur, no edema Gastrointestinal (Abdomen): Percussion/Palpation: abdomen soft; abdomen nontender Musculoskeletal: no cyanosis or clubbing, extremities motor strength 5/5 Skin: no rashes, warm and dry Neurologic: PERRL, EOMI, accommodation nl, no face palsy, no dysarthria Psychiatric: A+Ox3, euthymic affect Results & Data Results & Data ([facility]) Vital Signs (Past 12 Hours) Vital Signs Temp Pulse Resp BP Pulse Ox 06/19/20 07:54 36.5 C 75 19 119/67 95 (1) Pneumonia Laterality: right Lung location: lower lobe of lung Pneumonia type: due to unspecified organism Qualified Code(s): J18.9 - Pneumonia, unspecified organism
[2020-06-19] MEDS: TAMSULOSIN HCL 0.4 MG CAP PO SCH (20:35)
[2020-06-19] MEDS: PREGABALIN 75 MG CAP PO SCH (20:37)
[2020-06-20] MEDS ORDERED: VANCOMYCIN TROUGH ONE (05:30)
[2020-06-20] MEDS: LEVOTHYROXINE SODIUM 88 MCG TABLET PO SCH (05:52)
[2020-06-20] MEDS: CEFEPIME 2,000 MG in SYRINGE 0 ML IV SCH (05:52)
[2020-06-20] MEDS: ONDANSETRON INJ 2 MG/ML 2 ML VIAL IV PRN ×2 (05:58→17:47)
[2020-06-20 06:18] LABS: Hematocrit (blood only) 36.4 % (42-52); Hemoglobin 12.5 g/dL (14.0-18.0); Mean Corpuscular Hemoglobin 34.2 pg (25-34); Mean Corpuscular Hgb Conc 34.3 g/dL (32-36); Mean Corpuscular Volume 99.7 fL (80-100); Mean Platelet Volume 8.4 fL (7.4-10.4); Platelet Count 174 K/uL (130-400); RDW Coefficient of Variation 12.6 % (11.5-14.5); RDW Standard Deviation 45.8 fL (36.4-46.3); Red Blood Count 3.65 M/uL (4.7-6.1); White Blood Count 10.08 K/uL (4.8-10.8)
[2020-06-20] MEDS: predniSONE 5 MG TAB PO SCH (07:51)
[2020-06-20] MEDS: MAGNESIUM OXIDE 400 MG TAB PO SCH (07:51)
[2020-06-20] MEDS: CALCIUM CITRATE 950 MG TAB PO SCH (07:51)
[2020-06-20] MEDS: MULTIVITAMIN TAB PO SCH (07:52)
[2020-06-20] MEDS: PANTOprazole 40 MG TAB PO SCH (07:52)
[2020-06-20] MEDS: ENOXAPARIN INJ 40 MG/0.4 ML SYR SQ SCH (07:52)
[2020-06-20] MEDS: FERROUS SULFATE 325 MG TAB PO SCH (11:09)
[2020-06-20] MEDS: ACETAMINOPHEN 325 MG TAB PO PRN ×2 (12:40→22:05)
--- NOTE | 2020-06-20 15:51 | Hospitalist Progress Note ---
Date of Service June 20, 2020 Assessment & Plan (1) Pneumonia: admitted with community acquired pneumonia on IV Cefepime clinically improved ordered to change ABx to PO Augmentin , complete 7 days tx Leukocytosis/due to pneumonia resolved count improved from 24 k -12 K _> 10k Positive blood culture : one bottle + growth gram positive cocci possible contaminated sample repeat Blood culture ordered -result pending no evidence of sepsis , normal white count , no fever or chills or tachycardia abx adjusted as above Disposition : PT/OT ai expected to be discharged home on Sunday with Po Abx if continues to well clinically will benefit with home health visiting nurse Pt's friend /'s JERMANA Romelia will provide transport Admission and Anticipated Discharge Date Admission Date: June 18, 2020 Subjective Follow up visit for Pneumonia : doing much better , no cough or SOB , no fever or chills sitting up on chair , remains in same room with his appears to be in good spirit felt stomach upset after dinner today , mild nasuea , no fever or chills Review of Systems Review of Systems: All systems reviewed & are unremarkable except as noted in Subjective Physical Exam Constitutional: WD/WN, vitals as above Eyes: PERRL, conjunctivae normal, anicteric sclerae ENMT: external ear and nose normal, oropharynx normal Neck: trachea midline, no thyromegaly Respiratory: normal respiratory effort; no cough Auscultation: + diminished lung sounds Cardiovascular: RRR, no murmur, no edema Gastrointestinal (Abdomen): Percussion/Palpation: abdomen soft; abdomen nontender Musculoskeletal: no cyanosis or clubbing, extremities motor strength 5/5 Skin: no rashes, warm and dry Neurologic: PERRL, EOMI, accommodation nl, no face palsy, no dysarthria Psychiatric: A+Ox3, euthymic affect Results & Data Results & Data ([facility]) Vital Signs (Past 12 Hours) Vital Signs Temp Pulse Resp BP Pulse Ox 06/20/20 15:19 36.9 C 102 H 19 137/81 96 06/20/20 08:50 37.1 C 102 H 18 142/65 H 95 (1) Pneumonia Laterality: right Lung location: lower lobe of lung Pneumonia type: due to unspecified organism Qualified Code(s): J18.9 - Pneumonia, unspecified organism
[2020-06-20] MEDS: AMOXICILLIN/CLAVULANATE 875 MG TAB PO SCH (16:32)
[2020-06-20] MEDS: PREGABALIN 75 MG CAP PO SCH (20:42)
[2020-06-20] MEDS: TAMSULOSIN HCL 0.4 MG CAP PO SCH (20:42)
[2020-06-21] MEDS: LEVOTHYROXINE SODIUM 88 MCG TABLET PO SCH (05:51)
[2020-06-21] MEDS: MAGNESIUM OXIDE 400 MG TAB PO SCH (07:25)
[2020-06-21] MEDS: ENOXAPARIN INJ 40 MG/0.4 ML SYR SQ SCH (07:25)
[2020-06-21] MEDS: MULTIVITAMIN TAB PO SCH (07:25)
[2020-06-21] MEDS: predniSONE 5 MG TAB PO SCH (07:25)
[2020-06-21] MEDS: PANTOprazole 40 MG TAB PO SCH (07:25)
[2020-06-21] MEDS: CALCIUM CITRATE 950 MG TAB PO SCH (07:26)
[2020-06-21] MEDS: AMOXICILLIN/CLAVULANATE 875 MG TAB PO SCH ×2 (07:26→17:04)
[2020-06-21] MEDS: FERROUS SULFATE 325 MG TAB PO SCH (12:14)
[2020-06-21] MEDS: ACETAMINOPHEN 325 MG TAB PO PRN (19:50)
--- NOTE | 2020-06-21 20:26 | Hospitalist Progress Note ---
Date of Service June 21, 2020 Assessment & Plan (1) Pneumonia: admitted with community acquired pneumonia on IV Cefepime clinically improved ordered to change ABx to PO Augmentin , complete 7 days tx Leukocytosis/due to pneumonia resolved, normal count Positive blood culture : /contamination one bottle + growth gram positive cocci possible contaminated sample repeat Blood culture ordered -negative abx for pneumonia as above Disposition : discharge home tomorrow with home health care givers will provide transport Admission and Anticipated Discharge Date Admission Date: June 18, 2020 Subjective Follow up visit for Pneumonia : offers no complain , no cough or SOB no fever or chills doing well Physical Exam Constitutional: WD/WN, vitals as above Eyes: PERRL, conjunctivae normal, anicteric sclerae ENMT: external ear and nose normal, oropharynx normal Neck: trachea midline, no thyromegaly Respiratory: normal respiratory effort; no cough Auscultation: + diminished lung sounds Cardiovascular: RRR, no murmur, no edema Gastrointestinal (Abdomen): Percussion/Palpation: abdomen soft; abdomen nontender Musculoskeletal: no cyanosis or clubbing, extremities motor strength 5/5 Skin: no rashes, warm and dry Neurologic: PERRL, EOMI, accommodation nl, no face palsy, no dysarthria Psychiatric: A+Ox3, euthymic affect Results & Data Results & Data ([facility]) Vital Signs (Past 12 Hours) Vital Signs Temp Pulse Resp BP Pulse Ox 06/21/20 15:12 36.6 C 103 H 20 121/76 93 (1) Pneumonia Laterality: right Lung location: lower lobe of lung Pneumonia type: due to unspecified organism Qualified Code(s): J18.9 - Pneumonia, unspecified organism
[2020-06-21] MEDS: TAMSULOSIN HCL 0.4 MG CAP PO SCH (20:31)
[2020-06-21] MEDS: PREGABALIN 75 MG CAP PO SCH (20:31)
[2020-06-22] MEDS: ACETAMINOPHEN 325 MG TAB PO PRN (06:04)
[2020-06-22] MEDS: LEVOTHYROXINE SODIUM 88 MCG TABLET PO SCH (06:04)
[2020-06-22] MEDS: predniSONE 5 MG TAB PO SCH (07:16)
[2020-06-22] MEDS: AMOXICILLIN/CLAVULANATE 875 MG TAB PO SCH (07:16)
[2020-06-22] MEDS: CALCIUM CITRATE 950 MG TAB PO SCH (07:16)
[2020-06-22] MEDS: ENOXAPARIN INJ 40 MG/0.4 ML SYR SQ SCH (07:16)
[2020-06-22] MEDS: MAGNESIUM OXIDE 400 MG TAB PO SCH (07:16)
[2020-06-22] MEDS: PANTOprazole 40 MG TAB PO SCH (07:16)
[2020-06-22] MEDS: MULTIVITAMIN TAB PO SCH (07:16)
--- NOTE | 2020-06-22 10:29 | Discharge Summary ---
Date of Service June 22, 2020 Admission HPI Per Admitting Provider DICTATED BY: Tremaine Ring MD DATE OF ADMISSION: 06/18/2020 CHIEF COMPLAINT: Fall and weakness. HISTORY OF PRESENT ILLNESS: This is a 74-year-old male with past medical history significant for occult hypothyroidism, chronic bronchitis, gastroparesis, GERD, osteoporosis, history of orofacial dyskinesia, difficult to understand ,rheumatoid arthritis, history of depression, who lives with his , who was brought in because of fall and weakness. The patient says he was trying to get into his bed and legs felt weak and he fell down. Somewhat difficult to understand the patient because he does not have teeth and he also has orofacial dyskinesia. Denies any fevers. He says he has chronic cough and brings some yellowish phlegm. Denies any chest pain. Denies any shortness of breath or dizziness. Has some headache now. He says his appetite is okay. No abdominal pain, seems to have normal bowel and bladder movements. Complains of pain in his right knee, which seems to be chronic. He says they are not planning for surgery on that knee. He was tachycardic, had a temp spike in the ER, saturating 93% on room air. His white count is 24,000. Chest x-ray, right lower lobe pneumonia. His COVID PCR came back negative, flu and RSV negative. Principal Diagnosis community acquired pneumonia Discharge Exam Constitutional WD/WN, vitals as above Eyes PERRL, conjunctivae normal, anicteric sclerae ENMT external ear and nose normal, oropharynx normal Neck trachea midline, no thyromegaly Respiratory normal respiratory effort; no cough Auscultation: + diminished lung sounds Cardiovascular RRR, no murmur, no edema Gastrointestinal (Abdomen) Percussion/Palpation: abdomen soft; abdomen nontender Musculoskeletal no cyanosis or clubbing, extremities motor strength 5/5 Skin no rashes, warm and dry Neurologic PERRL, EOMI, accommodation nl, no face palsy, no dysarthria Psychiatric A+Ox3, euthymic affect Discharge Data Allergies Allergy/AdvReac Type Severity Reaction Status Date / Time metoclopramide AdvReac Intermediate RAPID HR Verified 06/18/20 05:02 Consultations 06/18/20 05:50 ED Decision to Admit Stat 06/18/20 08:47 Consult Case Management - Discharge Planning Routine Ordered Studies 06/18/20 05:02 CT head/brain wo con Urgent Hospital Course (1) Pneumonia: admitted with community acquired pneumonia on IV Cefepime clinically improved ordered to change ABx to PO Augmentin , complete 7 days tx Leukocytosis/due to pneumonia resolved, normal count Positive blood culture : /contamination one bottle + growth gram positive cocci possible contaminated sample repeat Blood culture ordered -negative abx for pneumonia as above Disposition : discharge home today with home health care givers will provide transport Total Time Total Time Spent Total Time Spent (In Minutes): 35mins Discharge Plan Discharge Items Patient Disposition: Home - Home Health Services Reason For Visit: FALL Discharge Diagnosis: Community acquired Pneumonia Activity: As commented below Activity Comment: as tolerated Non-emergency contact: Primary Care Provider Call non-emergency contact if: you have any medication questions Follow-up/Referrals: Suleiman Rhoades DO [Primary Care Provider] - 06/28/20 11:00 am (Date & Time 06/28/2020 11:00 AM Provider Suleiman Rhoades DO Department [facility] ) Diet: Regular Addtl Attending Provider Instructions: Please take all medications as instructed on discharge list below. Complete 3 more days of antibiotic : Augmentin 1 tablet twice daily for pneumonia take over the counter pro biotics for 1 week to prevent diarrhea /loose stool due to antibiotic It was a pleasure taking care of you! Please call if you have any questions or problems. You can reach a [facility] hospitalist on duty at [facility] 24 hours a day by calling [phone] Pending Studies at Discharge: No Stand-Alone Forms: My [facility], Smoking Cessation Medications and DC Order Prescriptions: New amoxicillin-pot clavulanate [Augmentin] 875-125 mg Tablet 1 tab PO BIDM 3 Days Qty: 6 RF: 0 Continued levothyroxine 88 mcg tablet 88 mcg PO QAM RF: 0 magnesium oxide 400 mg (241.3 mg magnesium) tablet 400 mg PO QAM RF: 0 tamsulosin 0.4 mg capsule 0.4 mg PO HS RF: 0 hydroxychloroquine 200 mg tablet 200 mg PO HS RF: 0 prednisone 5 mg tablet 5 mg PO QAM RF: 0 omeprazole 20 mg capsule,delayed release(DR/EC) 40 mg PO QAM RF: 0 tramadol 50 mg tablet 50 mg PO TID RF: 0 pregabalin [Lyrica] 75 mg capsule 75 mg PO HS RF: 0 multivitamin Tablet 1 tab PO QAM RF: 0 ferrous sulfate [iron] 325 mg (65 mg iron) Tablet 325 mg PO QDL RF: 0 calcium citrate 200 mg (950 mg) Tablet 200 mg PO QAM RF: 0 Discharge Orders: Discharge Order (Routine); Ordered 06/22/20 Ordered By: Connie Thompson Admission Data Admit Date/Time: 06/18/20 06:36 Attending Provider: Connie Thompson Admit Provider: Tremaine Ring Primary Care Provider: Suleiman Rhoades Other Providers: Tremaine Ring ; [facility],Home Healthcare Other Interventions: Discharge Summary Assessment (RN) Last Done: 06/22/20 12:49
[2020-06-22] MEDS: FERROUS SULFATE 325 MG TAB PO SCH (10:41)
== END 2020-06-22 16:30 | disposition home health service (06) | DRG 195 ==
LOC: ED 04:33 → 2N 06:36 → 2W 06-19 15:20